=== PATIENT | female | born 1980 | race Caucasian/White ===

== ENCOUNTER 2017-02-11 08:45 | Emergency (ER) | payer MEDICARE ==
[~2017-02-11 08:45] MED LIST: ALBUTEROL0.09 MG/A2 IH; BENTYL10 MG PO; CARAFATE1 G1 PO; CIPRO250 MG PO; CIPRO500 MG PO; CYCLOBENZAPRINE10 MG PO; DEXALONE30 MG PO; DIFLUCAN150 MG PO; DOLOBID500 MG PO; FLAGYL500 MG PO; HYDROCODONE BIT1 T11 PO; KEFLEX500 M1 PO; KEFLEX500 MG PO; KLONOPIN1 MG PO; MACROBID100 M1 PO; MEDROL DOSEPAK4 MG PO; METFORMIN HCL500 MG PO; MOTRIN800 MG PO; NEXIUM40 MG PO; NORCO 7.5-3251 EACH PO; OXYCODONE5 M1 PO; PERCOCET 325 MG1 TA7 PO; PROZAC10 MG PO; PYRIDIUM200 M1 PO; PYRIDIUM200 MG PO; REGLAN5 MG PO; RELION NOV100 UNIT/1 SQ; TRAMADOL HCL50 MG PO; ULTRAM50 MG PO; VICODIN 5/500 505 MG PO; VICTOZA6 MG/ML SC; VITABESE1 CAP PO; XANAX0.5 MG PO; XANAX1 MG PO; XANAX2 MG PO; ZEGERID 40 MG PO; ZOFRAN ODT4 MG SL; Zofran4 MG PO
[2017-02-11] MEDS ORDERED: METFORMIN500 MG PO (08:48)
[2017-02-11 09:23] LABS: BASO % 0.3 % (0.0-1.0); EOS # 0.2 10*3/uL (0.0-0.4); EOS % 2.2 % (1.0-4.0); HEMATOCRIT 45.4 % (37.0-47.0); HEMOGLOBIN 14.3 g/dl (12.0-16.0); IG # 0.1 10*3/uL (0.0-0.1); LYMPH # 3.5 10*3/uL (1.3-4.4); LYMPH % 36.2 % (27.0-41.0); MEAN CELL VOLUME 93.8 fl (81.0-99.0); MEAN CORPUSCULAR HGB 29.5 pg (27.0-31.0); MEAN CORPUSCULAR HGB CONC 31.5 g/dl (33.0-37.0); MONO # 0.5 10*3/uL (0.1-1.0); MONO % 5.4 % (3.0-9.0); NEUT # 5.3 10*3/uL (2.3-7.9); NEUT % 55.4 % (47.0-73.0); PLATELET COUNT AUTOMATED 302 10*3/uL (130-400); RED BLOOD COUNT 4.84 10*6/uL (4.10-5.10); WHITE BLOOD COUNT 9.6 10*3/uL (4.8-10.8)
[2017-02-11 09:27] LABS: BILIRUBIN NEGATIVE (NEGATIVE); BLOOD NEGATIVE (NEGATIVE); CLARITY SL CLOUDY (CLEAR); COLOR YELLOW (YELLOW); GLUCOSE NEGATIVE (NEGATIVE); KETONE NEGATIVE (NEGATIVE); LEUKO ESTERASE NEGATIVE (NEGATIVE); NITRITE NEGATIVE (NEGATIVE); PH 6.5 (5.0-9.0); PROTEIN NEGATIVE (NEGATIVE); SPECIFIC GRAVITY <= 1.005 (1.005-1.030)
[2017-02-11 09:36] LABS: ALBUMIN 3.5 gm/dl (3.1-4.5); ALKALINE PHOSPHATASE 80 U/L (45-117); BILIRUBIN, TOTAL 0.3 mg/dl (0.2-1.0); BUN 10 mg/dl (7-24); CARBON DIOXIDE 27 mmol/L (21-32); CHLORIDE 104 mmol/L (98-107); EST GLOM FILT AFRICAN AMERICAN > 60 ml/min; GLUCOSE 102 mg/dL (65-99); POTASSIUM 3.8 mmol/L (3.5-5.1); SGOT/AST 26 IU/L (3-35); SGPT/ALT 55 U/L (12-78); SODIUM 140 mmol/L (136-145); TOTAL PROTEIN 7.6 gm/dL (6.4-8.2)
[2017-02-11 09:48] LABS: URINE REFLEX COMMENT NO (NO)
[2017-02-11 09:49] LABS: EPITHELIAL CELLS 15-20; WBC 0-2 wbc/hpf (0-5)
== END 2017-02-11 10:07 | disposition home or self-care (01) ==
LOC: ED 08:45
PROVIDERS: Emergency Medicine
DX: G89.29 Other chronic pain (principal); R10.32 Left lower quadrant pain; M54.5 Low back pain; R10.2 Pelvic and perineal pain; K21.9 Gastro-esophageal reflux disease without esophagitis; F17.200 Nicotine dependence, unspecified, uncomplicated; G83.4 Cauda equina syndrome; Z87.442 Personal history of urinary calculi; Z90.49 Acquired absence of other specified parts of digestive tract; Z98.890 Other specified postprocedural states; Z90.711 Acquired absence of uterus with remaining cervical stump; Z79.899 Other long term (current) drug therapy; Z91.041 Radiographic dye allergy status; Z88.2 Allergy status to sulfonamides; Z88.6 Allergy status to analgesic agent

== ENCOUNTER 2017-04-04 21:47 | Emergency (ER) | payer MEDICARE ==
[~2017-04-04] VITALS: Ht 157.5 cm; Wt 170.6 kg
[~2017-04-04 21:47] MED LIST changes: +METFORMIN500 MG PO
[2017-04-04 23:25] LABS: BASO # 0.1 10*3/uL (0.0-0.1); BASO % 0.5 % (0.0-1.0); EOS # 0.2 10*3/uL (0.0-0.4); EOS % 2.1 % (1.0-4.0); HEMATOCRIT 45.2 % (37.0-47.0); HEMOGLOBIN 14.5 g/dl (12.0-16.0); IG # 0.1 10*3/uL (0.0-0.1); LYMPH # 2.7 10*3/uL (1.3-4.4); MEAN CELL VOLUME 93.2 fl (81.0-99.0); MEAN CORPUSCULAR HGB 29.9 pg (27.0-31.0); MEAN CORPUSCULAR HGB CONC 32.1 g/dl (33.0-37.0); MEAN PLATELET VOLUME 10.4 fl (9.6-12.3); MONO # 0.4 10*3/uL (0.1-1.0); MONO % 4.1 % (3.0-9.0); NEUT % 66.8 % (47.0-73.0); PLATELET COUNT AUTOMATED 318 10*3/uL (130-400); RED BLOOD COUNT 4.85 10*6/uL (4.10-5.10); RED CELL DISTRI WIDTH 14.9 % (0-14.5); WHITE BLOOD COUNT 10.5 10*3/uL (4.8-10.8)
[2017-04-04 23:40] LABS: ALBUMIN 3.6 gm/dl (3.1-4.5); ALKALINE PHOSPHATASE 78 U/L (45-117); BILIRUBIN, TOTAL 0.2 mg/dl (0.2-1.0); BUN 7 mg/dl (7-24); CARBON DIOXIDE 29 mmol/L (21-32); CHLORIDE 103 mmol/L (98-107); EST GLOM FILT AFRICAN AMERICAN > 60 ml/min; GLUCOSE 136 mg/dL (65-99); POTASSIUM 4.1 mmol/L (3.5-5.1); SGOT/AST 39 IU/L (3-35); SGPT/ALT 63 U/L (12-78); SODIUM 142 mmol/L (136-145); TOTAL PROTEIN 7.7 gm/dL (6.4-8.2)
[2017-04-04 23:42] LABS: BILIRUBIN NEGATIVE (NEGATIVE); BLOOD 3+ (NEGATIVE); CLARITY CLOUDY (CLEAR); COLOR RED (YELLOW); GLUCOSE NEGATIVE (NEGATIVE); KETONE TRACE (NEGATIVE); LEUKO ESTERASE TRACE (NEGATIVE); NITRITE NEGATIVE (NEGATIVE); PH 7.5 (5.0-9.0); PROTEIN 1+ (NEGATIVE); SPECIFIC GRAVITY 1.015 (1.005-1.030); UROBILINOGEN 0.2 E.U./dl (0.2-1.0)
[2017-04-04 23:54] LABS: BACTERIA 2+; EPITHELIAL CELLS 21-25; RBC TNTC rbc/hpf (0-2); URINE REFLEX COMMENT YES (NO)
[2017-04-05] MEDS ORDERED: ZOFRAN ODT4 MG SL (00:51)
[2017-04-05] MEDS ORDERED: HYDROCODONE BIT1 T11 PO (00:51)
[2017-04-05 01:22] LABS: LA>2 REFLEX 2 HR DRAW NOW
[2017-04-05] MEDS ORDERED: CIPRO500 MG PO (01:42)
== END 2017-04-05 02:06 | disposition home or self-care (01) ==
LOC: ED 21:47
PROVIDERS: Physician Assistant
DX: N23 Unspecified renal colic (principal); N30.01 Acute cystitis with hematuria; F17.200 Nicotine dependence, unspecified, uncomplicated; Z90.49 Acquired absence of other specified parts of digestive tract; Z98.890 Other specified postprocedural states; Z90.711 Acquired absence of uterus with remaining cervical stump; Z79.899 Other long term (current) drug therapy; Z91.041 Radiographic dye allergy status; Z88.2 Allergy status to sulfonamides; Z88.5 Allergy status to narcotic agent; Z88.6 Allergy status to analgesic agent

== ENCOUNTER 2017-04-14 08:36 | Emergency (ER) | payer MEDICARE ==
[2017-04-14 09:09] LABS: BILIRUBIN NEGATIVE (NEGATIVE); BLOOD 3+ (NEGATIVE); CLARITY SL CLOUDY (CLEAR); COLOR YELLOW (YELLOW); GLUCOSE NEGATIVE (NEGATIVE); KETONE NEGATIVE (NEGATIVE); NITRITE NEGATIVE (NEGATIVE); PROTEIN NEGATIVE (NEGATIVE); UROBILINOGEN 0.2 E.U./dl (0.2-1.0)
[2017-04-14 09:18] LABS: BASO # 0.1 10*3/uL (0.0-0.1); BASO % 0.5 % (0.0-1.0); EOS # 0.3 10*3/uL (0.0-0.4); EOS % 3.1 % (1.0-4.0); HEMOGLOBIN 14.5 g/dl (12.0-16.0); IG # 0.1 10*3/uL (0.0-0.1); LYMPH # 3.1 10*3/uL (1.3-4.4); LYMPH % 31.7 % (27.0-41.0); MEAN CELL VOLUME 92.6 fl (81.0-99.0); MEAN CORPUSCULAR HGB 29.8 pg (27.0-31.0); MEAN CORPUSCULAR HGB CONC 32.2 g/dl (33.0-37.0); MEAN PLATELET VOLUME 10.3 fl (9.6-12.3); MONO # 0.5 10*3/uL (0.1-1.0); MONO % 4.7 % (3.0-9.0); NEUT # 5.8 10*3/uL (2.3-7.9); NEUT % 59.4 % (47.0-73.0); PLATELET COUNT AUTOMATED 311 10*3/uL (130-400); RED BLOOD COUNT 4.86 10*6/uL (4.10-5.10); RED CELL DISTRI WIDTH 15.2 % (0-14.5); WHITE BLOOD COUNT 9.7 10*3/uL (4.8-10.8)
[2017-04-14 09:26] LABS: LEUKO ESTERASE 1+ (NEGATIVE)
[2017-04-14 09:27] LABS: BACTERIA 1+; RBC 31-40 rbc/hpf (0-2); URINE REFLEX COMMENT YES (NO)
[2017-04-14 09:28] LABS: URINE AMPHETAMINES < 1000 (1000ng/ml); URINE BARBITURATES < 200 (200ng/ml); URINE COCAINE < 300 (300ng/ml)
[2017-04-14 09:34] LABS: ALBUMIN 3.5 gm/dl (3.1-4.5); ALKALINE PHOSPHATASE 80 U/L (45-117); BILIRUBIN, TOTAL 0.3 mg/dl (0.2-1.0); BUN 9 mg/dl (7-24); CARBON DIOXIDE 28 mmol/L (21-32); CHLORIDE 102 mmol/L (98-107); EST GLOM FILT AFRICAN AMERICAN > 60 ml/min; GLUCOSE 140 mg/dL (65-99); SGOT/AST 24 IU/L (3-35); SGPT/ALT 52 U/L (12-78); SODIUM 140 mmol/L (136-145); TOTAL PROTEIN 7.6 gm/dL (6.4-8.2)
[2017-04-14] MEDS ORDERED: PYRIDIUM200 M1 PO (11:56)
[2017-04-14] MEDS ORDERED: MACROBID100 M1 PO (11:56)
== END 2017-04-14 12:02 | disposition home or self-care (01) ==
LOC: ED 08:36
PROVIDERS: Nurse Practitioner Family
DX: N39.0 Urinary tract infection, site not specified (principal); R03.0 Elevated blood-pressure reading, without diagnosis of hypertension; Z88.6 Allergy status to analgesic agent; Z88.2 Allergy status to sulfonamides; Z91.041 Radiographic dye allergy status; Z88.8 Allergy status to other drugs, medicaments and biological substances; K21.9 Gastro-esophageal reflux disease without esophagitis; F17.200 Nicotine dependence, unspecified, uncomplicated; Z90.49 Acquired absence of other specified parts of digestive tract; Z79.899 Other long term (current) drug therapy

== ENCOUNTER 2017-08-10 03:54 | Emergency (ER) | payer MEDICARE ==
[~2017-08-10] VITALS: Ht 157.4 cm; Wt 176.9 kg
[2017-08-10] MEDS ORDERED: BUSPIRONE HCL15 MG PO (04:01)
[2017-08-10] MEDS ORDERED: Percocet 325 MG1 TAB PO (04:01)
[2017-08-10 04:33] LABS: BASO % 0.3 % (0.0-1.0); EOS # 0.2 10*3/uL (0.0-0.4); EOS % 2.1 % (1.0-4.0); HEMATOCRIT 44.5 % (37.0-47.0); HEMOGLOBIN 14.4 g/dl (12.0-16.0); LYMPH # 2.9 10*3/uL (1.3-4.4); LYMPH % 25.1 % (27.0-41.0); MEAN CELL VOLUME 93.9 fl (81.0-99.0); MEAN CORPUSCULAR HGB 30.4 pg (27.0-31.0); MEAN CORPUSCULAR HGB CONC 32.4 g/dl (33.0-37.0); MEAN PLATELET VOLUME 10.3 fl (9.6-12.3); MONO # 0.7 10*3/uL (0.1-1.0); MONO % 5.8 % (3.0-9.0); NEUT # 7.6 10*3/uL (2.3-7.9); NEUT % 66.1 % (47.0-73.0); PLATELET COUNT AUTOMATED 293 10*3/uL (130-400); RED BLOOD COUNT 4.74 10*6/uL (4.10-5.10); RED CELL DISTRI WIDTH 15.7 % (0-14.5); WHITE BLOOD COUNT 11.5 10*3/uL (4.8-10.8)
[2017-08-10 04:43] LABS: ACT PARTIAL THROMBO TIME 27.9 SECONDS (20.8-31.5)
[2017-08-10 04:49] LABS: ALBUMIN 3.4 gm/dl (3.1-4.5); ALKALINE PHOSPHATASE 83 U/L (45-117); BUN 12 mg/dl (7-24); CHLORIDE 100 mmol/L (98-107); CREATININE 0.78 mg/dL (0.55-1.02); POTASSIUM 3.7 mmol/L (3.5-5.1); SGOT/AST 37 IU/L (3-35); SGPT/ALT 58 U/L (12-78); SODIUM 136 mmol/L (136-145); TOTAL PROTEIN 7.8 gm/dL (6.4-8.2)
[2017-08-10 04:53] LABS: TROPONIN I < 0.015 ng/ml (<0.045)
== END 2017-08-10 06:38 | disposition short-term general hospital (02) ==
LOC: ED 03:54
PROVIDERS: Student in an Organized Health Care Education/Training Program
DX: G83.4 Cauda equina syndrome (principal); R20.0 Anesthesia of skin; F17.200 Nicotine dependence, unspecified, uncomplicated; K21.9 Gastro-esophageal reflux disease without esophagitis; G89.29 Other chronic pain; M54.5 Low back pain; R10.2 Pelvic and perineal pain; Z90.49 Acquired absence of other specified parts of digestive tract; Z90.711 Acquired absence of uterus with remaining cervical stump; Z98.890 Other specified postprocedural states; Z87.442 Personal history of urinary calculi; Z79.899 Other long term (current) drug therapy; Z91.041 Radiographic dye allergy status; Z88.2 Allergy status to sulfonamides; Z88.5 Allergy status to narcotic agent; Z88.6 Allergy status to analgesic agent; W01.0XXA Fall on same level from slipping, tripping and stumbling without subsequent striking against object, initial encounter; Y93.89 Activity, other specified; Y92.091 Bathroom in other non-institutional residence as the place of occurrence of the external cause; Y99.9 Unspecified external cause status

== ENCOUNTER 2017-09-24 01:39 | Inpatient (IN) | payer MEDICARE ==
[2017-09-24] VITALS (8 sets, daily range): BP systolic 102–155; BP diastolic 44–84
[~2017-09-24] VITALS: Ht 157.4 cm; Wt 185.2 kg
[~2017-09-24 01:39] MED LIST changes: +BUSPIRONE HCL15 MG PO; +Percocet 325 MG1 TAB PO
[2017-09-24 02:13] LABS: BASO % 0.3 % (0.0-1.0); EOS # 0.3 10*3/uL (0.0-0.4); EOS % 2.3 % (1.0-4.0); HEMATOCRIT 45.5 % (37.0-47.0); HEMOGLOBIN 14.9 g/dl (12.0-16.0); LYMPH # 4.1 10*3/uL (1.3-4.4); LYMPH % 34.4 % (27.0-41.0); MEAN CELL VOLUME 93.2 fl (81.0-99.0); MEAN CORPUSCULAR HGB 30.5 pg (27.0-31.0); MEAN CORPUSCULAR HGB CONC 32.7 g/dl (33.0-37.0); MEAN PLATELET VOLUME 10.5 fl (9.6-12.3); MONO # 0.6 10*3/uL (0.1-1.0); MONO % 5.2 % (3.0-9.0); NEUT # 6.8 10*3/uL (2.3-7.9); NEUT % 57.3 % (47.0-73.0); PLATELET COUNT AUTOMATED 318 10*3/uL (130-400); RED BLOOD COUNT 4.88 10*6/uL (4.10-5.10); RED CELL DISTRI WIDTH 15.1 % (0-14.5); WHITE BLOOD COUNT 11.8 10*3/uL (4.8-10.8)
[2017-09-24 02:36] LABS: ALBUMIN 3.5 gm/dl (3.1-4.5); ALKALINE PHOSPHATASE 88 U/L (45-117); BUN 13 mg/dl (7-24); CHLORIDE 102 mmol/L (98-107); CREATININE 0.82 mg/dL (0.55-1.02); LIPASE 296 U/L (73-393); POTASSIUM 4.1 mmol/L (3.5-5.1); SGOT/AST 25 IU/L (3-35); SGPT/ALT 49 U/L (12-78); SODIUM 140 mmol/L (136-145); TOTAL PROTEIN 7.5 gm/dL (6.4-8.2)
[2017-09-24 03:10] LABS: BILIRUBIN NEGATIVE (NEGATIVE); BLOOD 3+ (NEGATIVE); CLARITY SL CLOUDY (CLEAR); COLOR YELLOW (YELLOW); GLUCOSE NEGATIVE (NEGATIVE); KETONE NEGATIVE (NEGATIVE); LEUKO ESTERASE NEGATIVE (NEGATIVE); NITRITE NEGATIVE (NEGATIVE); PH 6.5 (5.0-9.0); UROBILINOGEN 0.2 E.U./dl (0.2-1.0)
--- NOTE | 2017-09-24 03:18 | NUR ---
PT C/O OF ABDOMINAL PAIN WITH NO RELIEF FROM MEDICATION PAIN RATED 7/10 , NOTIFIED.
[2017-09-24 03:19] LABS: EPITHELIAL CELLS 45-50; RBC TNTC rbc/hpf (0-2); WBC 0-2 wbc/hpf (0-5)
--- NOTE | 2017-09-24 03:57 | NUR ---
PATIENT RESTING IN BED WITH SON AND AT BEDSIDE, PT UNABLE TO PROVIDE URINE SAMPLE, GIVEN MINI SOLIMAN, PT HAS NO REQUESTS AT THIS TIME, BED IN LOWEST POSITION BED RAILS UP X 2 CALL ORTA IN REACH
--- NOTE | 2017-09-24 04:15 | NUR ---
A 37, admitted to , under the services of BREANA Pacheco DO with a diagnosis of ABDOMINAL PAIN. Chief complaint is ABDOMINAL PAIN. Patient arrived via bed from ER. Monitor applied. Initial assessment completed. Vital signs taken and recorded. BREANA PACHECO DO notified of admission to the unit. Orders received. See assessment for past medical history, medications and allergies. Patient and/or family oriented to unit. [facility] visitation policy reviewed. Clothing/patient valuable form completed. VILMA BERMAN
[2017-09-24] MEDS ORDERED: CELEXA40 MG PO (04:28)
[2017-09-24] MEDS ORDERED: FLONASE ALLERG9.9 ML NAS (04:29)
[2017-09-24] MEDS ORDERED: PROTONIX40 MG PO (04:29)
[2017-09-24] MEDS ORDERED: NICOTROL10 MG INH (04:33)
--- NOTE | 2017-09-24 04:34 | NUR ---
MED REC UPDATED VIA LIST FROM PATIENT.
--- NOTE | 2017-09-24 06:29 | NUR ---
MEDICATED WITH PRN DILAUDID AND ZOFRAN ORDERED FOR C/O LOWER ABDOMINAL AND LOW BACK PAIN AND NAUSEA.
--- NOTE | 2017-09-24 08:22 | NUR ---
Patient requested information on HPOA and living will. Packet provided.
--- NOTE | 2017-09-24 09:00 | NUR ---
Yarn Spinner in to talk to patient. Patient states lives at home with family. There are few steps in the home. Physician: stephanie anaya [facility] health services: none Patient's level of ADLs: INDEPENDENT Patient has working utilities: all working DME: none Follow-up physician's appointment after d/c: will be made by hospitalist nurse director upon discharge Does patient want to access PORTAL?: no Discharge plan discussed with patient, patient lives at home with family, is independent in adls and ambulation, patient will be going back home upon discharge and denies any home needs. HAYDEN GRAFF
--- NOTE | 2017-09-24 19:33 | NUR ---
24 HR chart check completed.
--- NOTE | 2017-09-24 21:16 | NUR ---
C/O 10/10 ABDOMINAL PAIN. BOTH LOWER QUADRANTS. MEDICATED WITH DILAUDID ORDERED AND PER PATIENT REQUEST.
--- NOTE | 2017-09-24 22:16 | NUR ---
PATIENT SLEEPING IN CHAIR. NO SIGNS OF PAIN. DILAUDID EFFECTIVE.
--- NOTE | 2017-09-24 23:22 | NUR ---
PATIENT C/O ABDOMINAL PAIN. RLQ OF ABDOMEN. ALSO C/O NAUSEA WITHOUT VOMITING. MEDICATED WITH PRN DILAUDID ORDERED AND PER PATIENT REQUEST.
[2017-09-25] VITALS: BP 119/66
--- NOTE | 2017-09-25 | NUR ---
PATIENT IS ASLEEP IN CHAIR. NO SIGNS OF PAIN OR NAUSEA. ZOFRAN AND DILAUDID EFFECTIVE.
--- NOTE | 2017-09-25 01:39 | NUR ---
PATIENT C/O 08/28 RLQ ABDOMINAL PAIN. MEDICATED WITH DILAUDID PER PATIENT REQUEST.
--- NOTE | 2017-09-25 01:54 | NUR ---
PATIENT ASLEEP. NO SIGNS OF PAIN. DILAUDID EFFECTIVE.
--- NOTE | 2017-09-25 04:50 | NUR ---
PATIENT C/O 610 ABDOMINAL PAIN. MEDICATED WITH PRN DILAUDID ORDERED AND PER PATIENT REQUEST.
--- NOTE | 2017-09-25 05:50 | NUR ---
PATIENT ASLEEP IN CHAIR. NO SIGNS OF PAIN. DILAUDID EFFECTIVE.
[2017-09-25 06:39] LABS: BASO % 0.3 % (0.0-1.0); EOS # 0.1 10*3/uL (0.0-0.4); EOS % 1.5 % (1.0-4.0); HEMATOCRIT 40.5 % (37.0-47.0); LYMPH # 1.8 10*3/uL (1.3-4.4); LYMPH % 19.3 % (27.0-41.0); MEAN CORPUSCULAR HGB 30.1 pg (27.0-31.0); MEAN CORPUSCULAR HGB CONC 31.1 g/dl (33.0-37.0); MEAN PLATELET VOLUME 10.2 fl (9.6-12.3); MONO # 0.5 10*3/uL (0.1-1.0); MONO % 4.8 % (3.0-9.0); NEUT # 6.9 10*3/uL (2.3-7.9); NEUT % 73.5 % (47.0-73.0); PLATELET COUNT AUTOMATED 257 10*3/uL (130-400); RED BLOOD COUNT 4.19 10*6/uL (4.10-5.10); RED CELL DISTRI WIDTH 15.3 % (0-14.5); WHITE BLOOD COUNT 9.4 10*3/uL (4.8-10.8)
[2017-09-25 06:42] LABS: HEMOGLOBIN 12.6 g/dl (12.0-16.0); MEAN CELL VOLUME 96.7 fl (81.0-99.0)
[2017-09-25 07:03] LABS: ACT PARTIAL THROMBO TIME 29.9 SECONDS (20.8-31.5)
[2017-09-25 07:07] LABS: BUN 12 mg/dl (7-24); CHLORIDE 100 mmol/L (98-107); CHOLESTEROL 214 mg/dL (<200); CREATININE 0.78 mg/dL (0.55-1.02); HDL CHOLESTEROL 46 mg/dl (40-60); LDL CHOLESTEROL 125 mg/dL (9-159); POTASSIUM 3.9 mmol/L (3.5-5.1); SODIUM 134 mmol/L (136-145); TRIGLYCERIDES 217 mg/dl (<150); VLDL CHOLESTEROL 43 mg/dL (6-40)
[2017-09-25 07:28] LABS: VITAMIN D, 25-HYDROXY 29.1 ng/mL (30-100)
--- NOTE | 2017-09-25 07:45 | NUR ---
PT AWAKE. ASSESSMENT COMPLETE. ADMINISTERED IV DILAUDID PER PT REQUEST FOR C/O LOWER ABDOMINAL PAIN RATED 8/10. WILL MONITOR FOR EFFECTIVENESS.
[2017-09-25 08:00] VITALS: BP 115/60
--- NOTE | 2017-09-25 08:40 | NUR ---
PT SLEEPING. RESPS REG/EASY WITH NO DISTRESS NOTED AT THIS TIME.
--- NOTE | 2017-09-25 09:00 | NUR ---
case management visits with patient, patient denies any home needs
--- NOTE | 2017-09-25 10:05 | NUR ---
CALLED TO PTS ROOM FOR C/O LOWER ABDOMINAL PAIN RADIATING TO RIGHT SIDE. PT RATES PAIN AT A 6/10. ADMISITERED IV DILAUDID. WILL MONITOR FOR EFFECTIVENESS.
--- NOTE | 2017-09-25 10:45 | NUR ---
PT STATES MEDICATION EFFECTIVE IN REDUCING PAIN TO 3/10. BED LOW. CALL ORTA IN REACH.
[2017-09-25 12:00] VITALS: BP 127/60
--- NOTE | 2017-09-25 12:00 | NUR ---
ADMINISTERED PO TYLENOL AND XANAX PER PT REQUEST FOR LOWER ABD PAIN RATED AT 7/10 AND ANXIETY. WILL MONITOR FOR EFFECTIVENESS.
--- NOTE | 2017-09-25 12:55 | NUR ---
Patient resting quietly with no c/o discomfort. Respirations easy and regular. Vital signs stable. No overt distress. HAILEY ANGELES
--- NOTE | 2017-09-25 14:10 | NUR ---
ADMINISTERED IV DILAUDID PER PT REQUEST FOR LOWER ABD PAIN RATED 7/10. WILL MONITOR FOR EFFECTIVENESS.
--- NOTE | 2017-09-25 15:00 | NUR ---
Patient resting quietly with no c/o discomfort. Respirations easy and regular. Vital signs stable. No overt distress. HAILEY ANGELES
[2017-09-25 16:00] VITALS: BP 121/59
[2017-09-25 20:00] VITALS: BP 119/58
--- NOTE | 2017-09-25 20:00 | NUR ---
PT SITTING UP IN CHAIR AT THIS TIME, HS ASSESSMENT COMPLETE, VITALS WNL. IV SITE PATENT, DRESSING DRY AND IN TACT. IV FLUID RUNNING PER PHYSICIAN ORDER. PT ALERT AND ORIENTED, PLEASANT AND COOPERATIVE. ALL NEEDS MET AT THIS TIME. CALL LIGHT IN REACH.
--- NOTE | 2017-09-25 20:30 | NUR ---
PT C/O ABDOMINAL PAIN. TYLENOL 650 MG ADMINSITERED PO. TAKEN WITH EASE. WILL MONITOR FOR EFFECTIVENESS. CALL LIGHT IN REACH.
--- NOTE | 2017-09-25 21:30 | NUR ---
TYLENOL EFFECTIVE PER PT.
--- NOTE | 2017-09-25 22:30 | NUR ---
PT ADMINISTERED DILAUDID VIA IV FOR C/O ABDOMINAL PAIN. WILL MONTIOR FOR EFFECTIVENESS. PT SITTING UP IN CHAIR, ROOM FREE OF CLUTTER, SAFETY MEASURES IN PLACE. CALL LIGHT IN REACH.
--- NOTE | 2017-09-25 22:38 | NUR ---
PT GIVEN RESTORIL FOR C/O INSOMNIA. WILL MONITOR FOR EFFECTIVENESS. CALL LIGHT IN REACH.
--- NOTE | 2017-09-25 23:30 | NUR ---
DILAUDID EFFECTIVE. PT RESTING IN BED, CALL LIGHT IN REACH.
--- NOTE | 2017-09-25 23:38 | NUR ---
RESTORIL EFFECTIVE. PT RESTING PEACEFULLY IN BED. CALL LIGHT IN REACH.
[2017-09-26] VITALS: BP 108/65
--- NOTE | 2017-09-26 02:34 | NUR ---
PT C/O ABDOMINAL PAIN. DILAUDID ADMINISTERED VIA IV. WILL MONITOR FOR EFFECTIVENESS. SITTING UP IN BED AT THIS TIME, CALL LIGHT IN REACH.
--- NOTE | 2017-09-26 03:34 | NUR ---
DILAUDID EFFECTIVE. PT SITTING UP IN CHAIR AT THIS TIME. ALERT, ORIENTED AND PLEASANT. NO S/S OF DISTRESS AT THIS TIME. RESPIRATIONS EASY AND UNLABORED. IV FLUIDS RUNNING PER ORDER. IV SITE PATENT, DRESSING DRY AND IN TACT. CALL LIGHT IN REACH.
--- NOTE | 2017-09-26 04:58 | NUR ---
24 HR chart check completed.
--- NOTE | 2017-09-26 06:30 | NUR ---
AM MEDICAITONS TAKEN WITH EASE. PT DENIES PAIN OR DISCOMFORT AT THIS TIME. RESPIRATIONS EASY AND UNLABORED. NO NEW ABNORMALITES NOTED. CURRENTLY SITTING UP IN CHAIR. CALL LIGHT IN REACH.
[2017-09-26 08:00] VITALS: BP 118/58
--- NOTE | 2017-09-26 08:34 | NUR ---
PT SITTING UP IN CHAIR. NO DISTRESS NOTED. PT C/O ABD PAIN. WILL MONITOR
[2017-09-26 08:57] LABS: BASO % 0.4 % (0.0-1.0); EOS # 0.2 10*3/uL (0.0-0.4); EOS % 2.4 % (1.0-4.0); HEMATOCRIT 36.8 % (37.0-47.0); HEMOGLOBIN 11.8 g/dl (12.0-16.0); LYMPH # 2.1 10*3/uL (1.3-4.4); LYMPH % 28.4 % (27.0-41.0); MEAN CELL VOLUME 95.8 fl (81.0-99.0); MEAN CORPUSCULAR HGB 30.7 pg (27.0-31.0); MEAN CORPUSCULAR HGB CONC 32.1 g/dl (33.0-37.0); MEAN PLATELET VOLUME 10.1 fl (9.6-12.3); MONO # 0.4 10*3/uL (0.1-1.0); MONO % 5.9 % (3.0-9.0); NEUT # 4.6 10*3/uL (2.3-7.9); NEUT % 62.5 % (47.0-73.0); PLATELET COUNT AUTOMATED 214 10*3/uL (130-400); RED BLOOD COUNT 3.84 10*6/uL (4.10-5.10); RED CELL DISTRI WIDTH 15.1 % (0-14.5); WHITE BLOOD COUNT 7.4 10*3/uL (4.8-10.8)
--- NOTE | 2017-09-26 09:00 | NUR ---
case management visits with patient, patient denies any home needs
[2017-09-26 09:31] LABS: ALBUMIN 3.1 gm/dl (3.1-4.5); ALKALINE PHOSPHATASE 65 U/L (45-117); BUN 8 mg/dl (7-24); CHLORIDE 104 mmol/L (98-107); CREATININE 0.63 mg/dL (0.55-1.02); POTASSIUM 3.6 mmol/L (3.5-5.1); SGOT/AST 24 IU/L (3-35); SGPT/ALT 47 U/L (12-78); SODIUM 138 mmol/L (136-145); TOTAL PROTEIN 6.6 gm/dL (6.4-8.2)
[2017-09-26] MEDS ORDERED: CRESTOR10 M1 PO (09:48)
--- NOTE | 2017-09-26 11:12 | NUR ---
Discharge instructions reviewed with patient/family. Patient receptive and verbalizes understanding. Follow-up care arranged. Written instructions given to patient/family. YOHANA HOGAN
== END 2017-09-26 11:12 | disposition home or self-care (01) | DRG 392 ==
LOC: ED 01:39 → EDHOLD 03:31 → 5E 03:31
PROVIDERS: Internal Medicine; Registered Nurse; Student in an Organized Health Care Education/Training Program; ADMIT Internal Medicine
DX: R10.31 Right lower quadrant pain (principal); E87.2 Acidosis; R65.10 Systemic inflammatory response syndrome (SIRS) of non-infectious origin without acute organ dysfunction; E66.01 Morbid (severe) obesity due to excess calories; Z68.45 Body mass index [BMI] 70 or greater, adult; M54.5 Low back pain; G89.29 Other chronic pain; K21.9 Gastro-esophageal reflux disease without esophagitis; E78.5 Hyperlipidemia, unspecified; R31.9 Hematuria, unspecified; Z87.440 Personal history of urinary (tract) infections; Z82.49 Family history of ischemic heart disease and other diseases of the circulatory system; Z72.0 Tobacco use; Z91.041 Radiographic dye allergy status; Z88.2 Allergy status to sulfonamides; Z88.8 Allergy status to other drugs, medicaments and biological substances; Z91.048 Other nonmedicinal substance allergy status; Z79.899 Other long term (current) drug therapy; Z87.442 Personal history of urinary calculi

== ENCOUNTER 2017-10-29 04:26 | Emergency (ER) | payer MEDICARE ==
[~2017-10-29] VITALS: Ht 157.4 cm; Wt 181.9 kg
[~2017-10-29 04:26] MED LIST changes: +CELEXA40 MG PO; +CRESTOR10 M1 PO; +FLONASE ALLERG9.9 ML NAS; +NICOTROL10 MG INH; +PROTONIX40 MG PO
[2017-10-29 05:22] LABS: BILIRUBIN NEGATIVE (NEGATIVE); BLOOD 3+ (NEGATIVE); CLARITY SL CLOUDY (CLEAR); COLOR RED (YELLOW); GLUCOSE NEGATIVE (NEGATIVE); KETONE NEGATIVE (NEGATIVE); LEUKO ESTERASE NEGATIVE (NEGATIVE); NITRITE NEGATIVE (NEGATIVE); PH 7.5 (5.0-9.0); UROBILINOGEN 0.2 E.U./dl (0.2-1.0)
[2017-10-29 05:33] LABS: RBC TNTC rbc/hpf (0-2)
[2017-10-29 05:39] LABS: BASO % 0.3 % (0.0-1.0); EOS # 0.2 10*3/uL (0.0-0.4); EOS % 2.3 % (1.0-4.0); HEMOGLOBIN 13.6 g/dl (12.0-16.0); LYMPH # 2.4 10*3/uL (1.3-4.4); LYMPH % 26.2 % (27.0-41.0); MEAN CELL VOLUME 95.3 fl (81.0-99.0); MEAN CORPUSCULAR HGB 30.2 pg (27.0-31.0); MEAN CORPUSCULAR HGB CONC 31.6 g/dl (33.0-37.0); MEAN PLATELET VOLUME 10.4 fl (9.6-12.3); MONO # 0.5 10*3/uL (0.1-1.0); MONO % 4.9 % (3.0-9.0); NEUT # 6.1 10*3/uL (2.3-7.9); NEUT % 65.8 % (47.0-73.0); PLATELET COUNT AUTOMATED 316 10*3/uL (130-400); RED BLOOD COUNT 4.51 10*6/uL (4.10-5.10); RED CELL DISTRI WIDTH 15.2 % (0-14.5); WHITE BLOOD COUNT 9.2 10*3/uL (4.8-10.8)
[2017-10-29 05:50] LABS: BUN 7 mg/dl (7-24); CHLORIDE 102 mmol/L (98-107); CREATININE 0.65 mg/dL (0.55-1.02); SODIUM 139 mmol/L (136-145)
[2017-10-29 06:10] LABS: ALBUMIN 3.4 gm/dl (3.1-4.5); ALKALINE PHOSPHATASE 76 U/L (45-117); CHLORIDE 102 mmol/L (98-107); LIPASE 249 U/L (73-393); SGOT/AST 36 IU/L (3-35); SGPT/ALT 57 U/L (12-78); TOTAL PROTEIN 7.7 gm/dL (6.4-8.2)
[2017-10-29 06:18] LABS: BUN 7 mg/dl (7-24); CREATININE 0.65 mg/dL (0.55-1.02); SODIUM 139 mmol/L (136-145)
== END 2017-10-29 09:27 | disposition short-term general hospital (02) ==
LOC: ED 04:26
PROVIDERS: Emergency Medicine Emergency Medical Services
DX: R31.9 Hematuria, unspecified (principal); R10.9 Unspecified abdominal pain; R50.9 Fever, unspecified

== ENCOUNTER 2017-11-22 00:31 | Emergency (ER) | payer MEDICARE ==
[~2017-11-22] VITALS: Ht 157.4 cm; Wt 181.9 kg
== END 2017-11-22 04:59 | disposition home or self-care (01) ==
LOC: ED 00:31
DX: S30.0XXA Contusion of lower back and pelvis, initial encounter (principal); F17.200 Nicotine dependence, unspecified, uncomplicated; G89.29 Other chronic pain; K21.9 Gastro-esophageal reflux disease without esophagitis; E78.5 Hyperlipidemia, unspecified; Z79.899 Other long term (current) drug therapy; Z90.49 Acquired absence of other specified parts of digestive tract; Z98.890 Other specified postprocedural states; Z90.711 Acquired absence of uterus with remaining cervical stump; Z87.442 Personal history of urinary calculi; Z91.041 Radiographic dye allergy status; Z88.2 Allergy status to sulfonamides; Z88.6 Allergy status to analgesic agent; W19.XXXA Unspecified fall, initial encounter; Y93.89 Activity, other specified; Y92.098 Other place in other non-institutional residence as the place of occurrence of the external cause; Y99.9 Unspecified external cause status

== ENCOUNTER 2018-01-02 19:24 | Emergency (ER) | payer MEDICARE ==
[~2018-01-02] VITALS: Ht 157.4 cm; Wt 177.8 kg
[2018-01-02 19:56] LABS: BILIRUBIN NEGATIVE (NEGATIVE); BLOOD NEGATIVE (NEGATIVE); CLARITY SL CLOUDY (CLEAR); COLOR YELLOW (YELLOW); GLUCOSE NEGATIVE (NEGATIVE); KETONE NEGATIVE (NEGATIVE); LEUKO ESTERASE NEGATIVE (NEGATIVE); NITRITE NEGATIVE (NEGATIVE); PH 6.5 (5.0-9.0); SPECIFIC GRAVITY 1.015 (1.005-1.030); UROBILINOGEN 0.2 E.U./dl (0.2-1.0)
[2018-01-02 20:07] LABS: BACTERIA 2+
[2018-01-02 20:15] LABS: BASO % 0.4 % (0.0-1.0); EOS # 0.3 10*3/uL (0.0-0.4); EOS % 2.7 % (1.0-4.0); LYMPH % 27.7 % (27.0-41.0); MEAN CELL VOLUME 92.6 fl (81.0-99.0); MEAN CORPUSCULAR HGB 29.3 pg (27.0-31.0); MEAN CORPUSCULAR HGB CONC 31.7 g/dl (33.0-37.0); MEAN PLATELET VOLUME 10.6 fl (9.6-12.3); MONO # 0.5 10*3/uL (0.1-1.0); MONO % 4.5 % (3.0-9.0); NEUT # 6.9 10*3/uL (2.3-7.9); NEUT % 64.2 % (47.0-73.0); PLATELET COUNT AUTOMATED 321 10*3/uL (130-400); RED BLOOD COUNT 4.43 10*6/uL (4.10-5.10); RED CELL DISTRI WIDTH 15.5 % (0-14.5); WHITE BLOOD COUNT 10.8 10*3/uL (4.8-10.8)
[2018-01-02 20:59] LABS: ALBUMIN 3.2 gm/dl (3.1-4.5); ALKALINE PHOSPHATASE 76 U/L (45-117); BUN 13 mg/dl (7-24); CHLORIDE 101 mmol/L (98-107); CREATININE 0.66 mg/dL (0.55-1.02); LIPASE 229 U/L (73-393); POTASSIUM 3.8 mmol/L (3.5-5.1); SGOT/AST 31 IU/L (3-35); SGPT/ALT 64 U/L (12-78); SODIUM 135 mmol/L (136-145); TOTAL PROTEIN 7.3 gm/dL (6.4-8.2)
== END 2018-01-02 21:12 | disposition home or self-care (01) ==
LOC: ED 19:24
PROVIDERS: Physician Assistant
DX: R10.84 Generalized abdominal pain (principal); F17.200 Nicotine dependence, unspecified, uncomplicated; Z91.041 Radiographic dye allergy status; Z88.6 Allergy status to analgesic agent; Z88.8 Allergy status to other drugs, medicaments and biological substances; Z79.899 Other long term (current) drug therapy

== ENCOUNTER 2018-02-25 07:07 | Emergency (ER) | payer MEDICARE ==
[~2018-02-25] VITALS: Ht 157.4 cm; Wt 177.8 kg
[2018-02-25 07:50] LABS: BASO # 0.1 10*3/uL (0.0-0.1); BASO % 0.5 % (0.0-1.0); EOS # 0.2 10*3/uL (0.0-0.4); EOS % 2.2 % (1.0-4.0); HEMATOCRIT 43.7 % (37.0-47.0); HEMOGLOBIN 13.6 g/dl (12.0-16.0); LYMPH # 2.6 10*3/uL (1.3-4.4); MEAN CELL VOLUME 93.4 fl (81.0-99.0); MEAN CORPUSCULAR HGB 29.1 pg (27.0-31.0); MEAN CORPUSCULAR HGB CONC 31.1 g/dl (33.0-37.0); MEAN PLATELET VOLUME 10.1 fl (9.6-12.3); MONO # 0.5 10*3/uL (0.1-1.0); MONO % 4.8 % (3.0-9.0); NEUT % 66.9 % (47.0-73.0); PLATELET COUNT AUTOMATED 304 10*3/uL (130-400); RED BLOOD COUNT 4.68 10*6/uL (4.10-5.10); RED CELL DISTRI WIDTH 16.1 % (0-14.5); WHITE BLOOD COUNT 10.5 10*3/uL (4.8-10.8)
[2018-02-25 08:06] LABS: ACT PARTIAL THROMBO TIME 26.2 SECONDS (20.8-31.5)
[2018-02-25 08:07] LABS: ALBUMIN 3.3 gm/dl (3.1-4.5); ALKALINE PHOSPHATASE 84 U/L (45-117); BUN 11 mg/dl (7-24); CHLORIDE 101 mmol/L (98-107); POTASSIUM 3.8 mmol/L (3.5-5.1); SGOT/AST 30 IU/L (3-35); SGPT/ALT 66 U/L (12-78); SODIUM 139 mmol/L (136-145); TOTAL PROTEIN 7.5 gm/dL (6.4-8.2)
[2018-02-25] MEDS ORDERED: MEDROL DOSEPAK4 MG PO (09:37)
[2018-02-25] MEDS ORDERED: CYCLOBENZAPRINE10 MG PO (09:37)
== END 2018-02-25 09:44 | disposition home or self-care (01) ==
LOC: ED 07:07
PROVIDERS: Emergency Medicine
DX: G89.29 Other chronic pain (principal); M54.5 Low back pain; E66.01 Morbid (severe) obesity due to excess calories; K21.9 Gastro-esophageal reflux disease without esophagitis; E78.5 Hyperlipidemia, unspecified; F17.200 Nicotine dependence, unspecified, uncomplicated; Z90.49 Acquired absence of other specified parts of digestive tract; Z98.890 Other specified postprocedural states; Z90.711 Acquired absence of uterus with remaining cervical stump; Z79.899 Other long term (current) drug therapy; Z91.041 Radiographic dye allergy status; Z88.2 Allergy status to sulfonamides; Z88.6 Allergy status to analgesic agent; Z68.45 Body mass index [BMI] 70 or greater, adult

== ENCOUNTER 2018-06-20 01:30 | Emergency (ER) | payer MEDICARE ==
[~2018-06-20] VITALS: Ht 157.4 cm; Wt 177.8 kg
[2018-06-20 02:06] LABS: BASO # 0.1 10*3/uL (0.0-0.1); BASO % 0.5 % (0.0-1.0); EOS # 0.3 10*3/uL (0.0-0.4); EOS % 2.9 % (1.0-4.0); HEMATOCRIT 39.9 % (37.0-47.0); HEMOGLOBIN 12.5 g/dl (12.0-16.0); LYMPH # 2.3 10*3/uL (1.3-4.4); LYMPH % 23.4 % (27.0-41.0); MEAN CELL VOLUME 92.1 fl (81.0-99.0); MEAN CORPUSCULAR HGB 28.9 pg (27.0-31.0); MEAN CORPUSCULAR HGB CONC 31.3 g/dl (33.0-37.0); MEAN PLATELET VOLUME 10.2 fl (9.6-12.3); MONO # 0.4 10*3/uL (0.1-1.0); MONO % 4.2 % (3.0-9.0); NEUT # 6.7 10*3/uL (2.3-7.9); NEUT % 68.3 % (47.0-73.0); PLATELET COUNT AUTOMATED 274 10*3/uL (130-400); RED BLOOD COUNT 4.33 10*6/uL (4.10-5.10); RED CELL DISTRI WIDTH 15.9 % (0-14.5); WHITE BLOOD COUNT 9.9 10*3/uL (4.8-10.8)
[2018-06-20 02:23] LABS: ALBUMIN 3.1 gm/dl (3.1-4.5); ALKALINE PHOSPHATASE 79 U/L (45-117); BUN 12 mg/dl (7-24); CHLORIDE 101 mmol/L (98-107); CREATININE 0.74 mg/dL (0.55-1.02); LIPASE 287 U/L (73-393); SGOT/AST 31 IU/L (3-35); SGPT/ALT 66 U/L (12-78); SODIUM 138 mmol/L (136-145)
[2018-06-20 02:26] LABS: BETA-HCG, QUANT < 1.0 mIU/mL (1-3)
[2018-06-20 03:35] LABS: BILIRUBIN NEGATIVE (NEGATIVE); BLOOD NEGATIVE (NEGATIVE); CLARITY CLEAR (CLEAR); COLOR YELLOW (YELLOW); GLUCOSE 1+ (NEGATIVE); KETONE NEGATIVE (NEGATIVE); LEUKO ESTERASE NEGATIVE (NEGATIVE); NITRITE NEGATIVE (NEGATIVE); UROBILINOGEN 0.2 E.U./dl (0.2-1.0)
[2018-06-20 03:50] LABS: RBC 0-2 rbc/hpf (0-2); WBC 0-2 wbc/hpf (0-5)
== END 2018-06-20 04:45 | disposition home or self-care (01) ==
LOC: ED 01:30
PROVIDERS: Emergency Medicine Emergency Medical Services
DX: R10.32 Left lower quadrant pain (principal); R11.10 Vomiting, unspecified; R50.9 Fever, unspecified; K92.1 Melena; K21.9 Gastro-esophageal reflux disease without esophagitis; E78.5 Hyperlipidemia, unspecified; E66.01 Morbid (severe) obesity due to excess calories; F17.200 Nicotine dependence, unspecified, uncomplicated; Z68.45 Body mass index [BMI] 70 or greater, adult; Z91.041 Radiographic dye allergy status; Z88.2 Allergy status to sulfonamides; Z88.6 Allergy status to analgesic agent; Z79.899 Other long term (current) drug therapy

== ENCOUNTER 2019-02-15 18:56 | Inpatient (IN) | payer MEDICARE ==
[~2019-02-15] VITALS: Ht 157.5 cm; Wt 176.6 kg
[2019-02-15 19:40] LABS: BILIRUBIN NEGATIVE (NEGATIVE); BLOOD NEGATIVE (NEGATIVE); CLARITY CLEAR (CLEAR); COLOR YELLOW (YELLOW); GLUCOSE 3+ (NEGATIVE); KETONE NEGATIVE (NEGATIVE); LEUKO ESTERASE NEGATIVE (NEGATIVE); NITRITE NEGATIVE (NEGATIVE); SPECIFIC GRAVITY <= 1.005 (1.005-1.030); UROBILINOGEN 0.2 E.U./dl (0.2-1.0)
[2019-02-15 19:49] LABS: BACTERIA TRACE
[2019-02-15 20:25] VITALS: BP 110/54
[2019-02-15 20:34] LABS: BASO % 0.3 % (0.0-1.0); EOS # 0.2 10*3/uL (0.0-0.4); HEMATOCRIT 42.3 % (37.0-47.0); HEMOGLOBIN 12.8 g/dl (12.0-16.0); LYMPH # 1.9 10*3/uL (1.3-4.4); LYMPH % 20.4 % (27.0-41.0); MEAN CELL VOLUME 88.3 fl (81.0-99.0); MEAN CORPUSCULAR HGB 26.7 pg (27.0-31.0); MEAN CORPUSCULAR HGB CONC 30.3 g/dl (33.0-37.0); MEAN PLATELET VOLUME 10.8 fl (9.6-12.3); MONO # 0.4 10*3/uL (0.1-1.0); MONO % 4.7 % (3.0-9.0); NEUT # 6.6 10*3/uL (2.3-7.9); NEUT % 71.9 % (47.0-73.0); PLATELET COUNT AUTOMATED 297 10*3/uL (130-400); RED BLOOD COUNT 4.79 10*6/uL (4.10-5.10); WHITE BLOOD COUNT 9.2 10*3/uL (4.8-10.8)
--- NOTE | 2019-02-15 20:37 | NUR ---
PT WITH MILD PAIN RELIEF WITH MEDS,KIN MARTINES PA-C NOTIFIED.
[2019-02-15 20:55] LABS: ALKALINE PHOSPHATASE 97 U/L (45-117); BUN 7 mg/dl (7-24); CHLORIDE 101 mmol/L (98-107); CREATININE 0.71 mg/dL (0.55-1.02); LIPASE 302 U/L (73-393); POTASSIUM 3.9 mmol/L (3.5-5.1); SGOT/AST 49 IU/L (3-35); SGPT/ALT 88 U/L (12-78); SODIUM 137 mmol/L (136-145); TOTAL PROTEIN 7.2 gm/dL (6.4-8.2)
[2019-02-15 21:26] VITALS: BP 125/60
[2019-02-15] MEDS ORDERED: LISINOPRIL5 MG PO (21:28)
[2019-02-15] MEDS ORDERED: GEMFIBROZIL600 MG PO (22:08)
[2019-02-15] MEDS ORDERED: OMEPRAZOLE40 MG PO (22:10)
--- NOTE | 2019-02-15 22:20 | NUR ---
Time: 2219 A 38 year old FEMALE admitted to under services of BREANA DUGAN DO. Pt. arrived via bed from ER. Chief complaint: ABDOMINAL PAIN. BINA MART
[2019-02-15] MEDS ORDERED: NOVOLOG100 UNIT/1 SQ (22:35)
--- NOTE | 2019-02-15 22:40 | NUR ---
PRESENT AND AT BEDSIDE. IN FORMED THAT PATIENT IS STILL HAS ABDOMINAL PAIN 05/28.
--- NOTE | 2019-02-15 22:54 | NUR ---
INFORMED THAT MEDICATIONS ARE VERIFIED
--- NOTE | 2019-02-15 23:36 | NUR ---
INFORMED THAT PATIENT IS IN ROOM CRYING STATING PAIN 9/10 TO ABDOMINAL REGION AND THAT HER NAUSEA HAS ONLY GOT WORSE W/ ZOFRAN BEING INEFFECTIVE. STATED HE WILL PLACE SOME ORDERS.
[2019-02-16] VITALS: BP 131/69
--- NOTE | 2019-02-16 00:23 | NUR ---
CONSULTED, PER NO NEED TO CALL.
--- NOTE | 2019-02-16 00:34 | NUR ---
PATIENT MEDICATED WITH MORPHINE D/T 08/28 RLQ PAIN AND PHENERGAN FOR NAUSEA. WILL MONITOR
--- NOTE | 2019-02-16 01:19 | NUR ---
AIDE CAME TO THIS NURSE AND STATED THAT PATIENTS P.OX=86% RA, REEVALUATED P.OX WITH DIFFERENT EQUIPMENT P.OX=91-92% RA. PATIENT DOES USED HOME O2 PRN AT NIGHT, PLACED ON 1LPM NC P.OX=95%. NO DISTRESS NOTED, RES VINITA LOPEZ. PATIENT VOICED NO COMPLAINTS. CALL LIGHT LEFT WITHIN REACH.
--- NOTE | 2019-02-16 01:34 | NUR ---
MORPHINE & PHENERGAN EFFECTIVE.
--- NOTE | 2019-02-16 04:53 | NUR ---
24 HR chart check completed.
--- NOTE | 2019-02-16 05:10 | NUR ---
PATIENT MEDICATED WITH MORPHINE D/T RLQ PAIN 07/29 AND PHENERGAN FOR NAUSEA. WILL MONITOR
--- NOTE | 2019-02-16 06:10 | NUR ---
MORPHINE AND PHENERGAN EFFECTIVE
[2019-02-16 06:32] LABS: BASO # 0.1 10*3/uL (0.0-0.1); BASO % 0.6 % (0.0-1.0); EOS # 0.3 10*3/uL (0.0-0.4); EOS % 2.8 % (1.0-4.0); HEMATOCRIT 43.1 % (37.0-47.0); HEMOGLOBIN 12.8 g/dl (12.0-16.0); LYMPH # 2.4 10*3/uL (1.3-4.4); MEAN CORPUSCULAR HGB 26.7 pg (27.0-31.0); MEAN CORPUSCULAR HGB CONC 29.7 g/dl (33.0-37.0); MEAN PLATELET VOLUME 11.2 fl (9.6-12.3); MONO # 0.4 10*3/uL (0.1-1.0); MONO % 4.3 % (3.0-9.0); NEUT # 5.7 10*3/uL (2.3-7.9); NEUT % 64.5 % (47.0-73.0); PLATELET COUNT AUTOMATED 314 10*3/uL (130-400); RED BLOOD COUNT 4.79 10*6/uL (4.10-5.10); RED CELL DISTRI WIDTH 17.2 % (0-14.5); WHITE BLOOD COUNT 8.8 10*3/uL (4.8-10.8)
[2019-02-16 06:33] LABS: ALBUMIN 3.1 gm/dl (3.1-4.5); BUN 7 mg/dl (7-24); CHLORIDE 103 mmol/L (98-107); CREATININE 0.66 mg/dL (0.55-1.02); PHOSPHOROUS 3.9 mg/dL (2.5-4.9); POTASSIUM 3.9 mmol/L (3.5-5.1); SGOT/AST 55 IU/L (3-35); SGPT/ALT 88 U/L (12-78); SODIUM 138 mmol/L (136-145)
[2019-02-16 06:34] LABS: ALKALINE PHOSPHATASE 100 U/L (45-117); TOTAL PROTEIN 7.3 gm/dL (6.4-8.2)
--- NOTE | 2019-02-16 08:45 | NUR ---
PATIENT COMPLAINING OF PAIN IN HER RIGHT LOWER ABDOMEN. PATIENT REQUESTING MORPHINE AT THIS TIME. INFORMED PATIENT THAT HER MORPHINE IS NOT DUE AT THIS TIME. OFFERED PATIENT A NORCO. STATES SHE WILL JUST WAIT UNTIL THE MORPHINE IS DUE. NO OTHER NEEDS/COMPLAINTS AT THIS TIME.
[2019-02-16 12:00] VITALS: BP 131/72
[2019-02-16] MEDS ORDERED: PERCOCET 5-3251 EACH PO (12:21)
[2019-02-16] MEDS ORDERED: ZOFRAN4 MG PO (12:21)
--- NOTE | 2019-02-16 13:46 | NUR ---
Discharge instructions reviewed with patient/family. Patient receptive and verbalizes understanding. Follow-up care arranged. Written instructions given to patient/family. WENT OVER DISCHARGE PAPERS WITH PATIENT. IV REMOVED, PATIENT TOLERATED WELL. PATIENT RECIEVED PRESCRIPTION FOR PERCOCET. ALSO AWARE OF PRESCRIPTION FOR ZOFRAN AT PHARMACY. PATIENT ACCOMPANIED TO CAR VIA WHEELCHAIR BY STAFF AND FAMILY AT THIS TIME. ALL BELONINGS WITH PATIENT AT THIS TIME. BENITEZ HARRISON E
[2019-05-16] MEDS ORDERED: HYDROCODONE-AC1 EAC1 PO (22:32)
== END 2019-02-16 13:46 | disposition home or self-care (01) | DRG 392 ==
LOC: ED 18:56 → EDHOLD 21:14 → 4E 21:14
PROVIDERS: Internal Medicine; Physician Assistant; ADMIT Internal Medicine
DX: R10.31 Right lower quadrant pain (principal); G83.4 Cauda equina syndrome; E87.2 Acidosis; E44.0 Moderate protein-calorie malnutrition; Z68.45 Body mass index [BMI] 70 or greater, adult; G89.29 Other chronic pain; M54.5 Low back pain; E66.01 Morbid (severe) obesity due to excess calories; R74.0 Nonspecific elevation of levels of transaminase and lactic acid dehydrogenase [LDH]; K25.7 Chronic gastric ulcer without hemorrhage or perforation; E78.5 Hyperlipidemia, unspecified; M19.90 Unspecified osteoarthritis, unspecified site; E11.65 Type 2 diabetes mellitus with hyperglycemia; F17.210 Nicotine dependence, cigarettes, uncomplicated; Z88.8 Allergy status to other drugs, medicaments and biological substances; Z91.041 Radiographic dye allergy status; Z88.2 Allergy status to sulfonamides; Z91.048 Other nonmedicinal substance allergy status; Z90.49 Acquired absence of other specified parts of digestive tract; Z82.49 Family history of ischemic heart disease and other diseases of the circulatory system; Z87.442 Personal history of urinary calculi; Z85.43 Personal history of malignant neoplasm of ovary; Z87.11 Personal history of peptic ulcer disease; Z90.710 Acquired absence of both cervix and uterus; Z90.722 Acquired absence of ovaries, bilateral; Z84.1 Family history of disorders of kidney and ureter; Z82.5 Family history of asthma and other chronic lower respiratory diseases; Z79.4 Long term (current) use of insulin; Z79.899 Other long term (current) drug therapy; Z71.6 Tobacco abuse counseling

== ENCOUNTER 2019-03-03 01:41 | Emergency (ER) | payer MEDICARE ==
[~2019-03-03] VITALS: Wt 173.3 kg
[~2019-03-03 01:41] MED LIST changes: +GEMFIBROZIL600 MG PO; +LISINOPRIL5 MG PO; +NOVOLOG100 UNIT/1 SQ; +OMEPRAZOLE40 MG PO; +PERCOCET 5-3251 EACH PO; +ZOFRAN4 MG PO
[2019-03-03 02:13] LABS: BASO # 0.1 10*3/uL (0.0-0.1); BASO % 0.5 % (0.0-1.0); EOS # 0.2 10*3/uL (0.0-0.4); EOS % 2.3 % (1.0-4.0); HEMATOCRIT 44.1 % (37.0-47.0); HEMOGLOBIN 13.4 g/dl (12.0-16.0); LYMPH # 2.6 10*3/uL (1.3-4.4); LYMPH % 24.7 % (27.0-41.0); MEAN CELL VOLUME 88.7 fl (81.0-99.0); MEAN CORPUSCULAR HGB CONC 30.4 g/dl (33.0-37.0); MEAN PLATELET VOLUME 10.7 fl (9.6-12.3); MONO # 0.5 10*3/uL (0.1-1.0); MONO % 4.9 % (3.0-9.0); NEUT % 66.7 % (47.0-73.0); PLATELET COUNT AUTOMATED 327 10*3/uL (130-400); RED BLOOD COUNT 4.97 10*6/uL (4.10-5.10); RED CELL DISTRI WIDTH 17.1 % (0-14.5); WHITE BLOOD COUNT 10.5 10*3/uL (4.8-10.8)
[2019-03-03 02:32] LABS: ALBUMIN 3.3 gm/dl (3.1-4.5); ALKALINE PHOSPHATASE 104 U/L (45-117); BUN 10 mg/dl (7-24); CHLORIDE 100 mmol/L (98-107); CREATININE 0.79 mg/dL (0.55-1.02); POTASSIUM 3.8 mmol/L (3.5-5.1); SGOT/AST 48 IU/L (3-35); SGPT/ALT 73 U/L (12-78); SODIUM 134 mmol/L (136-145); TOTAL PROTEIN 7.9 gm/dL (6.4-8.2)
[2019-03-03 02:37] LABS: BILIRUBIN NEGATIVE (NEGATIVE); BLOOD 3+ (NEGATIVE); CLARITY CLOUDY (CLEAR); COLOR RED (YELLOW); GLUCOSE 3+ (NEGATIVE); KETONE NEGATIVE (NEGATIVE); LEUKO ESTERASE TRACE (NEGATIVE); NITRITE NEGATIVE (NEGATIVE); SPECIFIC GRAVITY 1.015 (1.005-1.030); UROBILINOGEN 0.2 E.U./dl (0.2-1.0)
[2019-03-03 02:46] LABS: RBC TNTC rbc/hpf (0-2)
[2019-05-16] MEDS ORDERED: HYDROCODONE-AC1 EAC1 PO (22:32)
== END 2019-03-03 04:03 | disposition left against medical advice (07) ==
LOC: ED 01:41
PROVIDERS: Emergency Medicine
DX: R31.9 Hematuria, unspecified (principal); E11.65 Type 2 diabetes mellitus with hyperglycemia; R74.0 Nonspecific elevation of levels of transaminase and lactic acid dehydrogenase [LDH]; G89.29 Other chronic pain; E66.01 Morbid (severe) obesity due to excess calories; E78.5 Hyperlipidemia, unspecified; F17.200 Nicotine dependence, unspecified, uncomplicated; Z87.442 Personal history of urinary calculi; Z91.041 Radiographic dye allergy status; Z88.8 Allergy status to other drugs, medicaments and biological substances; Z88.2 Allergy status to sulfonamides; Z88.6 Allergy status to analgesic agent; Z91.048 Other nonmedicinal substance allergy status; Z79.899 Other long term (current) drug therapy; Z68.45 Body mass index [BMI] 70 or greater, adult; Z90.710 Acquired absence of both cervix and uterus; Z90.49 Acquired absence of other specified parts of digestive tract

== ENCOUNTER 2019-06-29 08:53 | Emergency (ER) | payer MEDICARE ==
[~2019-06-29] VITALS: Ht 157.4 cm; Wt 179.6 kg
--- NOTE | ~2019-06-29 | EKG ---
[place], [place] ELECTROCARDIOGRAM REPORT NAME: NALINI KO UNIT #: [id number] ROOM: DOCTOR: EPIPHANY DRAFT REPORT BIRTHDATE: [birth year] [facility] Test Date: 2019-06-29 Test Time: 09:13:21 Pat Name: NALINI KO Department: ER Room: Gender: F Snipper: : 1980 Requested By: ZOHREH JEREZ Order Number: [id number] Reading MD: Jose Silva MD Measurements Intervals [place] Rate: 113 P: 36 NH: 137 QRS: 28 QRSD: 93 T: 2 QT: 319 QTc: 438 Interpretive Statements Sinus tachycardia Low voltage, precordial leads Nonspecific T wave changes Electronically Signed On 06-30-2019 4:48:44 PDT by Jose Silva MD CM:[email or web address]:ELECTROCARDIOGRAM REPORT [id number] ZOHREH JEREZ MD EPIPHANY DRAFT REPORT ZOHREH JEREZ MD
[~2019-06-29 08:53] MED LIST changes: +HYDROCODONE-AC1 EAC1 PO
[2019-06-29 09:29] LABS: BASO % 0.4 % (0.0-1.0); EOS # 0.5 10*3/uL (0.0-0.4); EOS % 4.8 % (1.0-4.0); HEMATOCRIT 41.3 % (37.0-47.0); HEMOGLOBIN 12.3 g/dl (12.0-16.0); LYMPH # 2.8 10*3/uL (1.3-4.4); LYMPH % 28.9 % (27.0-41.0); MEAN CORPUSCULAR HGB 26.8 pg (27.0-31.0); MEAN CORPUSCULAR HGB CONC 29.8 g/dl (33.0-37.0); MEAN PLATELET VOLUME 10.5 fl (9.6-12.3); MONO # 0.5 10*3/uL (0.1-1.0); NEUT # 5.9 10*3/uL (2.3-7.9); NEUT % 60.2 % (47.0-73.0); PLATELET COUNT AUTOMATED 324 10*3/uL (130-400); RED BLOOD COUNT 4.59 10*6/uL (4.10-5.10); RED CELL DISTRI WIDTH 17.1 % (0-14.5); WHITE BLOOD COUNT 9.8 10*3/uL (4.8-10.8)
[2019-06-29 09:47] LABS: ACT PARTIAL THROMBO TIME 25.4 SECONDS (20.0-32.1); ALBUMIN 3.4 gm/dl (3.1-4.5); ALKALINE PHOSPHATASE 86 U/L (45-117); BUN 10 mg/dl (7-24); CHLORIDE 102 mmol/L (98-107); CREATININE 0.71 mg/dL (0.55-1.02); INTERNATIONAL NORM RATIO 0.9 (2.0-3.5); POTASSIUM 4.1 mmol/L (3.5-5.1); SGOT/AST 36 IU/L (3-35); SGPT/ALT 63 U/L (12-78); SODIUM 136 mmol/L (136-145); TOTAL PROTEIN 7.5 gm/dL (6.4-8.2)
[2019-06-29 09:49] LABS: TROPONIN I < 0.015 ng/ml (<0.045)
[2019-06-29 11:39] LABS: BILIRUBIN NEGATIVE (NEGATIVE); BLOOD NEGATIVE (NEGATIVE); CLARITY CLEAR (CLEAR); COLOR YELLOW (YELLOW); GLUCOSE 3+ (NEGATIVE); KETONE NEGATIVE (NEGATIVE); LEUKO ESTERASE NEGATIVE (NEGATIVE); NITRITE NEGATIVE (NEGATIVE); SPECIFIC GRAVITY 1.015 (1.005-1.030); UROBILINOGEN 0.2 E.U./dl (0.2-1.0)
[2019-06-29 11:46] LABS: RBC 0-2 rbc/hpf (0-2)
[2019-06-29] MEDS ORDERED: AUGMENTIN 875875 MG PO (13:44)
[2019-06-29] MEDS ORDERED: ZOFRAN4 MG PO (13:45)
== END 2019-06-29 13:58 | disposition home or self-care (01) ==
LOC: ED 08:53
PROVIDERS: Emergency Medicine
DX: T81.49XA Infection following a procedure, other surgical site, initial encounter (principal); R10.9 Unspecified abdominal pain; R11.2 Nausea with vomiting, unspecified; E66.01 Morbid (severe) obesity due to excess calories; E11.9 Type 2 diabetes mellitus without complications; G89.29 Other chronic pain; E78.5 Hyperlipidemia, unspecified; M19.90 Unspecified osteoarthritis, unspecified site; F17.200 Nicotine dependence, unspecified, uncomplicated; Z90.49 Acquired absence of other specified parts of digestive tract; Z90.710 Acquired absence of both cervix and uterus; Z91.041 Radiographic dye allergy status; Z88.8 Allergy status to other drugs, medicaments and biological substances; Z88.2 Allergy status to sulfonamides; Z88.6 Allergy status to analgesic agent; Z91.048 Other nonmedicinal substance allergy status; Z79.4 Long term (current) use of insulin; Z79.899 Other long term (current) drug therapy; Z87.442 Personal history of urinary calculi; Z68.45 Body mass index [BMI] 70 or greater, adult; Y83.8 Other surgical procedures as the cause of abnormal reaction of the patient, or of later complication, without mention of misadventure at the time of the procedure; Y92.89 Other specified places as the place of occurrence of the external cause

== ENCOUNTER 2019-08-02 00:15 | Emergency (ER) | payer MEDICARE ==
[~2019-08-02] VITALS: Ht 157.4 cm; Wt 164.2 kg
[~2019-08-02 00:15] MED LIST changes: +AUGMENTIN 875875 MG PO
[2019-08-02 01:09] LABS: BASO % 0.2 % (0.0-1.0); HEMATOCRIT 36.9 % (37.0-47.0); HEMOGLOBIN 11.3 g/dl (12.0-16.0); LYMPH # 1.2 10*3/uL (1.3-4.4); MEAN CELL VOLUME 88.5 fl (81.0-99.0); MEAN CORPUSCULAR HGB 27.1 pg (27.0-31.0); MEAN CORPUSCULAR HGB CONC 30.6 g/dl (33.0-37.0); MONO # 0.7 10*3/uL (0.1-1.0); MONO % 4.5 % (3.0-9.0); NEUT # 12.4 10*3/uL (2.3-7.9); NEUT % 86.2 % (47.0-73.0); PLATELET COUNT AUTOMATED 349 10*3/uL (130-400); RED BLOOD COUNT 4.17 10*6/uL (4.10-5.10); RED CELL DISTRI WIDTH 16.8 % (0-14.5); WHITE BLOOD COUNT 14.4 10*3/uL (4.8-10.8)
[2019-08-02 01:37] LABS: ALBUMIN 3.4 gm/dl (3.1-4.5); CHLORIDE 102 mmol/L (98-107); TOTAL PROTEIN 7.6 gm/dL (6.4-8.2)
[2019-08-02 01:48] LABS: ALKALINE PHOSPHATASE 83 U/L (45-117); BUN 12 mg/dl (7-24); CREATININE 0.85 mg/dL (0.55-1.02); LIPASE 149 U/L (73-393); POTASSIUM 4.4 mmol/L (3.5-5.1); SGOT/AST 21 IU/L (3-35); SGPT/ALT 56 U/L (12-78); SODIUM 138 mmol/L (136-145)
[2019-08-02 02:28] LABS: BILIRUBIN NEGATIVE (NEGATIVE); BLOOD NEGATIVE (NEGATIVE); CLARITY SL CLOUDY (CLEAR); COLOR YELLOW (YELLOW); GLUCOSE 3+ (NEGATIVE); KETONE TRACE (NEGATIVE); LEUKO ESTERASE NEGATIVE (NEGATIVE); NITRITE NEGATIVE (NEGATIVE); UROBILINOGEN 0.2 E.U./dl (0.2-1.0)
[2019-08-02 02:33] LABS: BACTERIA 2+; EPITHELIAL CELLS 0-2
== END 2019-08-02 04:10 | disposition home or self-care (01) ==
LOC: ED 00:15
PROVIDERS: Nurse Practitioner Family
DX: A08.4 Viral intestinal infection, unspecified (principal); E11.9 Type 2 diabetes mellitus without complications; E78.5 Hyperlipidemia, unspecified; E66.01 Morbid (severe) obesity due to excess calories; M19.90 Unspecified osteoarthritis, unspecified site; F17.200 Nicotine dependence, unspecified, uncomplicated; Z91.041 Radiographic dye allergy status; Z88.2 Allergy status to sulfonamides; Z88.6 Allergy status to analgesic agent; Z88.8 Allergy status to other drugs, medicaments and biological substances; Z79.899 Other long term (current) drug therapy; Z79.4 Long term (current) use of insulin; Z68.45 Body mass index [BMI] 70 or greater, adult

== ENCOUNTER 2019-10-20 04:40 | Emergency (ER) | payer MEDICARE ==
[~2019-10-20] VITALS: Ht 157.4 cm; Wt 164.2 kg
[2019-10-20 05:00] LABS: BILIRUBIN NEGATIVE (NEGATIVE); BLOOD 3+ (NEGATIVE); CLARITY SL CLOUDY (CLEAR); COLOR YELLOW (YELLOW); GLUCOSE NEGATIVE (NEGATIVE); KETONE NEGATIVE (NEGATIVE); LEUKO ESTERASE NEGATIVE (NEGATIVE); NITRITE NEGATIVE (NEGATIVE); SPECIFIC GRAVITY 1.025 (1.005-1.030); UROBILINOGEN 0.2 E.U./dl (0.2-1.0)
[2019-10-20 05:07] LABS: EPITHELIAL CELLS 15-20; RBC 41-50 rbc/hpf (0-2)
[2019-10-20 05:27] LABS: BASO % 0.4 % (0.0-1.0); EOS # 0.2 10*3/uL (0.0-0.4); EOS % 2.7 % (1.0-4.0); HEMATOCRIT 41.4 % (37.0-47.0); HEMOGLOBIN 12.1 g/dl (12.0-16.0); LYMPH # 2.5 10*3/uL (1.3-4.4); LYMPH % 27.8 % (27.0-41.0); MEAN CORPUSCULAR HGB 25.4 pg (27.0-31.0); MEAN CORPUSCULAR HGB CONC 29.2 g/dl (33.0-37.0); MEAN PLATELET VOLUME 10.2 fl (9.6-12.3); MONO # 0.4 10*3/uL (0.1-1.0); MONO % 4.5 % (3.0-9.0); NEUT # 5.7 10*3/uL (2.3-7.9); NEUT % 64.2 % (47.0-73.0); PLATELET COUNT AUTOMATED 329 10*3/uL (130-400); RED BLOOD COUNT 4.76 10*6/uL (4.10-5.10); RED CELL DISTRI WIDTH 16.9 % (0-14.5); WHITE BLOOD COUNT 8.9 10*3/uL (4.8-10.8)
[2019-10-20 05:40] LABS: ALBUMIN 3.3 gm/dl (3.1-4.5); ALKALINE PHOSPHATASE 83 U/L (45-117); BUN 9 mg/dl (7-24); CHLORIDE 104 mmol/L (98-107); CREATININE 0.69 mg/dL (0.55-1.02); LIPASE 219 U/L (73-393); POTASSIUM 3.9 mmol/L (3.5-5.1); SGOT/AST 25 IU/L (3-35); SGPT/ALT 41 U/L (12-78); SODIUM 139 mmol/L (136-145); TOTAL PROTEIN 7.6 gm/dL (6.4-8.2)
== END 2019-10-20 08:13 | disposition home or self-care (01) ==
LOC: ED 04:40
PROVIDERS: Emergency Medicine
DX: N20.1 Calculus of ureter (principal); G89.29 Other chronic pain; E11.9 Type 2 diabetes mellitus without complications; E78.5 Hyperlipidemia, unspecified; E66.01 Morbid (severe) obesity due to excess calories; K21.9 Gastro-esophageal reflux disease without esophagitis; F17.200 Nicotine dependence, unspecified, uncomplicated; Z91.041 Radiographic dye allergy status; Z88.8 Allergy status to other drugs, medicaments and biological substances; Z88.2 Allergy status to sulfonamides; Z88.6 Allergy status to analgesic agent; Z91.048 Other nonmedicinal substance allergy status; Z79.899 Other long term (current) drug therapy; Z87.442 Personal history of urinary calculi; Z68.45 Body mass index [BMI] 70 or greater, adult; Z85.43 Personal history of malignant neoplasm of ovary

== ENCOUNTER 2020-03-28 05:00 | Emergency (ER) | payer OTHER, MEDICARE ==
[~2020-03-28] VITALS: Ht 157.4 cm; Wt 164.2 kg
[2020-03-28 05:21] LABS: CLARITY CLOUDY (CLEAR); COLOR ORANGE (YELLOW)
[2020-03-28 05:22] LABS: BILIRUBIN NEGATIVE (NEGATIVE); BLOOD 3+ (NEGATIVE); GLUCOSE NEGATIVE (NEGATIVE); KETONE NEGATIVE (NEGATIVE); NITRITE NEGATIVE (NEGATIVE); SPECIFIC GRAVITY 1.025 (1.005-1.030); UROBILINOGEN 0.2 E.U./dl (0.2-1.0)
[2020-03-28 05:23] LABS: LEUKO ESTERASE NEGATIVE (NEGATIVE)
[2020-03-28 05:42] LABS: RBC TNTC rbc/hpf (0-2)
[2020-03-28 05:43] LABS: WBC 0-2 wbc/hpf (0-5)
[2020-03-28 06:01] LABS: BASO # 0.1 10*3/uL (0.0-0.1); BASO % 0.5 % (0.0-1.0); EOS # 0.3 10*3/uL (0.0-0.4); EOS % 3.2 % (1.0-4.0); LYMPH # 2.5 10*3/uL (1.3-4.4); LYMPH % 26.6 % (27.0-41.0); MEAN CELL VOLUME 83.7 fl (81.0-99.0); MEAN CORPUSCULAR HGB 24.9 pg (27.0-31.0); MEAN CORPUSCULAR HGB CONC 29.8 g/dl (33.0-37.0); MEAN PLATELET VOLUME 10.3 fl (9.6-12.3); MONO # 0.5 10*3/uL (0.1-1.0); MONO % 5.3 % (3.0-9.0); NEUT % 63.8 % (47.0-73.0); PLATELET COUNT AUTOMATED 319 10*3/uL (130-400); RED BLOOD COUNT 4.78 10*6/uL (4.10-5.10); RED CELL DISTRI WIDTH 17.6 % (0-14.5); WHITE BLOOD COUNT 9.4 10*3/uL (4.8-10.8)
[2020-03-28 06:23] LABS: ALBUMIN 3.2 gm/dl (3.1-4.5); ALKALINE PHOSPHATASE 87 U/L (45-117); BUN 10 mg/dl (7-24); CHLORIDE 103 mmol/L (98-107); CREATININE 0.74 mg/dL (0.55-1.02); LIPASE 218 U/L (73-393); POTASSIUM 4.1 mmol/L (3.5-5.1); SGOT/AST 31 IU/L (3-35); SGPT/ALT 56 U/L (12-78); SODIUM 135 mmol/L (136-145); TOTAL PROTEIN 7.4 gm/dL (6.4-8.2)
[2020-03-28] MEDS ORDERED: ZOFRAN4 MG PO (07:29)
--- NOTE | 2020-03-28 07:57 | NUR ---
DILAUDID GIVEN FOR COMPLAINTS OF PAIN IN RIGHT QUADRANT AND LOWER BACK. WILL MONITOR EFFECTIVENESS
== END 2020-03-28 08:10 | disposition home or self-care (01) ==
LOC: ED 05:00
PROVIDERS: Emergency Medicine Emergency Medical Services
DX: N23 Unspecified renal colic (principal); R31.9 Hematuria, unspecified; K21.9 Gastro-esophageal reflux disease without esophagitis; G89.29 Other chronic pain; E78.5 Hyperlipidemia, unspecified; E66.01 Morbid (severe) obesity due to excess calories; M19.90 Unspecified osteoarthritis, unspecified site; E11.9 Type 2 diabetes mellitus without complications; Z87.442 Personal history of urinary calculi; Z91.041 Radiographic dye allergy status; Z88.8 Allergy status to other drugs, medicaments and biological substances; Z88.2 Allergy status to sulfonamides; Z88.6 Allergy status to analgesic agent; Z91.048 Other nonmedicinal substance allergy status; Z79.899 Other long term (current) drug therapy; Z68.45 Body mass index [BMI] 70 or greater, adult; Z90.710 Acquired absence of both cervix and uterus; Z90.49 Acquired absence of other specified parts of digestive tract; Z87.891 Personal history of nicotine dependence

== ENCOUNTER 2020-06-07 22:59 | Emergency (ER) | payer OTHER, MEDICARE ==
[~2020-06-07] VITALS: Ht 157.4 cm; Wt 154.7 kg
[2020-06-08 00:15] LABS: BILIRUBIN NEGATIVE (NEGATIVE); BLOOD 3+ (NEGATIVE); CLARITY CLOUDY (CLEAR); COLOR RED (YELLOW); GLUCOSE 2+ (NEGATIVE); KETONE NEGATIVE (NEGATIVE); LEUKO ESTERASE NEGATIVE (NEGATIVE); NITRITE NEGATIVE (NEGATIVE); UROBILINOGEN 0.2 E.U./dl (0.2-1.0)
[2020-06-08 00:19] LABS: RBC TNTC rbc/hpf (0-2)
[2020-06-08 01:04] LABS: BASO % 0.4 % (0.0-1.0); EOS # 0.3 10*3/uL (0.0-0.4); EOS % 2.6 % (1.0-4.0); HEMATOCRIT 40.3 % (37.0-47.0); LYMPH # 2.6 10*3/uL (1.3-4.4); LYMPH % 25.8 % (27.0-41.0); MEAN CELL VOLUME 83.3 fl (81.0-99.0); MEAN CORPUSCULAR HGB 24.2 pg (27.0-31.0); MONO # 0.5 10*3/uL (0.1-1.0); MONO % 5.2 % (3.0-9.0); NEUT # 6.5 10*3/uL (2.3-7.9); NEUT % 65.5 % (47.0-73.0); PLATELET COUNT AUTOMATED 311 10*3/uL (130-400); RED BLOOD COUNT 4.84 10*6/uL (4.10-5.10); RED CELL DISTRI WIDTH 18.5 % (0-14.5)
[2020-06-08 01:18] LABS: ALBUMIN 3.4 gm/dl (3.1-4.5); ALKALINE PHOSPHATASE 85 U/L (45-117); BUN 12 mg/dl (7-24); CHLORIDE 102 mmol/L (98-107); POTASSIUM 3.9 mmol/L (3.5-5.1); SGOT/AST 27 IU/L (3-35); SGPT/ALT 49 U/L (12-78); SODIUM 135 mmol/L (136-145); TOTAL PROTEIN 7.7 gm/dL (6.4-8.2)
== END 2020-06-08 06:55 | disposition home or self-care (01) ==
LOC: ED 22:59
PROVIDERS: Emergency Medicine; Nurse Practitioner Family
DX: R31.9 Hematuria, unspecified (principal); R10.2 Pelvic and perineal pain; E11.9 Type 2 diabetes mellitus without complications; E78.5 Hyperlipidemia, unspecified; M19.90 Unspecified osteoarthritis, unspecified site; E66.01 Morbid (severe) obesity due to excess calories; F17.200 Nicotine dependence, unspecified, uncomplicated; Z91.041 Radiographic dye allergy status; Z88.6 Allergy status to analgesic agent; Z88.8 Allergy status to other drugs, medicaments and biological substances; Z88.2 Allergy status to sulfonamides; Z79.899 Other long term (current) drug therapy; Z79.4 Long term (current) use of insulin; Z68.45 Body mass index [BMI] 70 or greater, adult

== ENCOUNTER 2020-08-20 04:10 | Emergency (ER) | payer OTHER ==
[~2020-08-20] VITALS: Ht 157.4 cm; Wt 164.7 kg
[2020-08-20 04:53] LABS: BILIRUBIN Negative (Negative); BLOOD 3+ (Negative); CLARITY Cloudy (Clear); COLOR Red (Yellow); GLUCOSE 3+ (Negative); KETONE Negative (Negative); LEUKO ESTERASE Negative (Negative); NITRITE Negative (Negative); SPECIFIC GRAVITY >= 1.030 (1.001-1.030)
[2020-08-20 05:01] LABS: BACTERIA TRACE; RBC 51-100 rbc/hpf (0-2)
[2020-08-20] MEDS ORDERED: CIPRO500 MG PO (05:33)
== END 2020-08-20 06:07 | disposition home or self-care (01) ==
LOC: ED 04:10
PROVIDERS: Internal Medicine
DX: N30.11 Interstitial cystitis (chronic) with hematuria (principal); Z88.8 Allergy status to other drugs, medicaments and biological substances; Z91.041 Radiographic dye allergy status; Z88.2 Allergy status to sulfonamides; Z79.899 Other long term (current) drug therapy; Z79.2 Long term (current) use of antibiotics

== ENCOUNTER 2020-09-16 18:40 | Emergency (ER) | payer OTHER ==
[~2020-09-16] VITALS: Ht 157.4 cm; Wt 150.6 kg
== END 2020-09-16 22:56 ==
LOC: ED 18:40
DX: M17.11 Unilateral primary osteoarthritis, right knee (principal); Z88.8 Allergy status to other drugs, medicaments and biological substances; Z79.899 Other long term (current) drug therapy

== ENCOUNTER 2020-12-29 01:55 | Emergency (ER) | payer OTHER ==
[~2020-12-29] VITALS: Ht 157.4 cm; Wt 164.2 kg
[2020-12-29 02:28] LABS: BILIRUBIN Negative (Negative); BLOOD 3+ (Negative); CLARITY Cloudy (Clear); COLOR Orange (Yellow); GLUCOSE 3+ (Negative); KETONE Trace (Negative); LEUKO ESTERASE Trace (Negative); NITRITE Negative (Negative)
[2020-12-29 02:44] LABS: RBC TNTC rbc/hpf (0-2)
[2020-12-29 03:15] LABS: BASO # 0.1 10*3/uL (0.0-0.1); BASO % 0.6 % (0.0-1.0); EOS # 0.3 10*3/uL (0.0-0.4); EOS % 2.5 % (1.0-4.0); LYMPH # 2.4 10*3/uL (1.3-4.4); LYMPH % 22.7 % (27.0-41.0); MEAN CELL VOLUME 84.3 fl (81.0-99.0); MEAN CORPUSCULAR HGB 25.5 pg (27.0-31.0); MEAN CORPUSCULAR HGB CONC 30.2 g/dl (33.0-37.0); MEAN PLATELET VOLUME 10.4 fl (9.6-12.3); MONO # 0.5 10*3/uL (0.1-1.0); MONO % 4.3 % (3.0-9.0); NEUT # 7.5 10*3/uL (2.3-7.9); NEUT % 69.3 % (47.0-73.0); PLATELET COUNT AUTOMATED 319 10*3/uL (130-400); RED BLOOD COUNT 5.34 10*6/uL (4.10-5.10); RED CELL DISTRI WIDTH 16.1 % (0-14.5); WHITE BLOOD COUNT 10.7 10*3/uL (4.8-10.8)
[2020-12-29 03:35] LABS: BUN 9 mg/dl (7-24); CHLORIDE 100 mmol/L (98-107); CREATININE 0.71 mg/dL (0.55-1.02); POTASSIUM 3.8 mmol/L (3.5-5.1); SODIUM 135 mmol/L (136-145)
== END 2020-12-29 03:50 | disposition home or self-care (01) ==
LOC: ED 01:55
PROVIDERS: Internal Medicine
DX: R10.31 Right lower quadrant pain (principal); E11.65 Type 2 diabetes mellitus with hyperglycemia; R31.9 Hematuria, unspecified; K21.9 Gastro-esophageal reflux disease without esophagitis; F17.200 Nicotine dependence, unspecified, uncomplicated; F41.9 Anxiety disorder, unspecified; Z88.8 Allergy status to other drugs, medicaments and biological substances; Z88.2 Allergy status to sulfonamides; Z91.041 Radiographic dye allergy status; Z79.899 Other long term (current) drug therapy; Z90.49 Acquired absence of other specified parts of digestive tract; Z90.710 Acquired absence of both cervix and uterus; Z98.890 Other specified postprocedural states

== ENCOUNTER 2022-01-26 21:00 | Emergency (ER) | payer OTHER ==
[2022-01-26 21:20] LABS: BILIRUBIN Negative (Negative); BLOOD 3+ (Negative); CLARITY Cloudy (Clear); COLOR Orange (Yellow); GLUCOSE Trace (Negative); KETONE Trace (Negative); LEUKO ESTERASE 1+ (Negative); NITRITE Negative (Negative)
[2022-01-26 21:31] LABS: RBC TNTC rbc/hpf (0-2)
[2022-01-26] MEDS ORDERED: BUSPAR15 MG PO (21:40)
[2022-01-26] MEDS ORDERED: OMEPRAZOLE40 MG PO (21:41)
[2022-01-26] MEDS ORDERED: CITALOPRAM40 MG PO (21:42)
[2022-01-26 21:44] LABS: BASO % 0.4 % (0.0-1.0); EOS # 0.3 10*3/uL (0.0-0.4); EOS % 2.8 % (1.0-4.0); HEMATOCRIT 44.3 % (37.0-47.0); LYMPH # 2.9 10*3/uL (1.3-4.4); LYMPH % 30.8 % (27.0-41.0); MEAN CELL VOLUME 93.9 fl (81.0-99.0); MEAN CORPUSCULAR HGB 29.9 pg (27.0-31.0); MEAN CORPUSCULAR HGB CONC 31.8 g/dl (33.0-37.0); MEAN PLATELET VOLUME 10.3 fl (9.6-12.3); MONO # 0.4 10*3/uL (0.1-1.0); MONO % 4.3 % (3.0-9.0); NEUT # 5.9 10*3/uL (2.3-7.9); NEUT % 61.2 % (47.0-73.0); PLATELET COUNT AUTOMATED 303 10*3/uL (130-400); RED BLOOD COUNT 4.72 10*6/uL (4.10-5.10); RED CELL DISTRI WIDTH 14.6 % (0-14.5); WHITE BLOOD COUNT 9.6 10*3/uL (4.8-10.8)
[2022-01-26 22:00] LABS: ALKALINE PHOSPHATASE 87 U/L (45-117); BUN 10 mg/dl (7-24); CHLORIDE 102 mmol/L (98-107); CREATININE 0.68 mg/dL (0.55-1.02); POTASSIUM 3.7 mmol/L (3.5-5.1); SGOT/AST 12 IU/L (3-35); SGPT/ALT 25 U/L (12-78); SODIUM 136 mmol/L (136-145); TOTAL PROTEIN 7.5 gm/dL (6.4-8.2)
== END 2022-01-27 01:29 | disposition home or self-care (01) ==
LOC: ED 21:00
PROVIDERS: Emergency Medicine; Hospitalist
DX: R10.31 Right lower quadrant pain (principal); R31.9 Hematuria, unspecified; E11.9 Type 2 diabetes mellitus without complications; E78.5 Hyperlipidemia, unspecified; E66.01 Morbid (severe) obesity due to excess calories; M19.90 Unspecified osteoarthritis, unspecified site; Z91.041 Radiographic dye allergy status; Z88.2 Allergy status to sulfonamides; Z88.8 Allergy status to other drugs, medicaments and biological substances; Z88.6 Allergy status to analgesic agent; Z79.899 Other long term (current) drug therapy; Z90.710 Acquired absence of both cervix and uterus; Z90.89 Acquired absence of other organs; Z98.890 Other specified postprocedural states; Z87.891 Personal history of nicotine dependence

== ENCOUNTER 2022-02-08 22:49 | Emergency (ER) | payer OTHER ==
[~2022-02-08] VITALS: Ht 157.4 cm; Wt 163.7 kg
[~2022-02-08 22:49] MED LIST changes: +BUSPAR15 MG PO; +CITALOPRAM40 MG PO
[2022-02-08 23:14] LABS: BILIRUBIN Negative (Negative); BLOOD 3+ (Negative); CLARITY Cloudy (Clear); COLOR Red (Yellow); GLUCOSE Negative (Negative); KETONE Negative (Negative); LEUKO ESTERASE 1+ (Negative); NITRITE Negative (Negative)
[2022-02-08 23:24] LABS: EPITHELIAL CELLS 41-50
[2022-02-08 23:25] LABS: RBC TNTC rbc/hpf (0-2)
== END 2022-02-09 01:35 | disposition home or self-care (01) ==
LOC: ED 22:49
PROVIDERS: Emergency Medicine
DX: R31.9 Hematuria, unspecified (principal); R10.30 Lower abdominal pain, unspecified; Z91.041 Radiographic dye allergy status; Z88.6 Allergy status to analgesic agent; Z88.8 Allergy status to other drugs, medicaments and biological substances; Z79.899 Other long term (current) drug therapy; Z90.49 Acquired absence of other specified parts of digestive tract; Z90.710 Acquired absence of both cervix and uterus; Z87.891 Personal history of nicotine dependence

== ENCOUNTER 2022-03-30 21:39 | Emergency (ER) | payer OTHER ==
[~2022-03-30] VITALS: Ht 157.4 cm; Wt 158.8 kg
[2022-03-30 22:32] LABS: BILIRUBIN Negative (Negative); BLOOD 3+ (Negative); CLARITY Cloudy (Clear); COLOR Orange (Yellow); GLUCOSE 2+ (Negative); KETONE Negative (Negative); LEUKO ESTERASE Trace (Negative); NITRITE Negative (Negative)
[2022-03-30 22:36] LABS: BASO % 0.4 % (0.0-1.0); EOS # 0.3 10*3/uL (0.0-0.4); EOS % 2.7 % (1.0-4.0); LYMPH # 3.3 10*3/uL (1.3-4.4); LYMPH % 31.9 % (27.0-41.0); MEAN CELL VOLUME 91.7 fl (81.0-99.0); MEAN CORPUSCULAR HGB 29.2 pg (27.0-31.0); MEAN CORPUSCULAR HGB CONC 31.8 g/dl (33.0-37.0); MONO # 0.6 10*3/uL (0.1-1.0); MONO % 5.4 % (3.0-9.0); NEUT # 6.1 10*3/uL (2.3-7.9); PLATELET COUNT AUTOMATED 310 10*3/uL (130-400); RED CELL DISTRI WIDTH 14.6 % (0-14.5); WHITE BLOOD COUNT 10.3 10*3/uL (4.8-10.8)
[2022-03-30 22:51] LABS: ALKALINE PHOSPHATASE 88 U/L (45-117); BUN 15 mg/dl (7-24); CHLORIDE 101 mmol/L (98-107); CREATININE 0.63 mg/dL (0.55-1.02); LIPASE 264 U/L (73-393); POTASSIUM 3.9 mmol/L (3.5-5.1); SGOT/AST 12 IU/L (3-35); SGPT/ALT 30 U/L (12-78); SODIUM 133 mmol/L (136-145); TOTAL PROTEIN 7.5 gm/dL (6.4-8.2)
[2022-03-30 23:02] LABS: BACTERIA 1+; RBC 41-50 rbc/hpf (0-2)
== END 2022-03-31 00:28 | disposition left against medical advice (07) ==
LOC: ED 21:39
PROVIDERS: Physician Assistant
DX: R10.32 Left lower quadrant pain (principal); R31.9 Hematuria, unspecified; R11.2 Nausea with vomiting, unspecified; K21.9 Gastro-esophageal reflux disease without esophagitis; Z90.710 Acquired absence of both cervix and uterus; Z91.041 Radiographic dye allergy status; Z88.6 Allergy status to analgesic agent; Z88.8 Allergy status to other drugs, medicaments and biological substances; Z79.899 Other long term (current) drug therapy; Z90.49 Acquired absence of other specified parts of digestive tract; F17.200 Nicotine dependence, unspecified, uncomplicated

== ENCOUNTER 2022-08-15 22:10 | Emergency (ER) | payer OTHER ==
[~2022-08-15] VITALS: Ht 157.4 cm; Wt 160.1 kg
[2022-08-15 23:47] LABS: BILIRUBIN Negative (Negative); BLOOD 3+ (Negative); CLARITY Turbid (Clear); COLOR Orange (Yellow); GLUCOSE 3+ (Negative); KETONE Trace (Negative); LEUKO ESTERASE 1+ (Negative); NITRITE Negative (Negative); PH 5.5 (4.5-8.0); SPECIFIC GRAVITY 1.025 (1.001-1.030)
[2022-08-15 23:56] LABS: RBC TNTC rbc/hpf (0-2)
== END 2022-08-16 00:36 | disposition home or self-care (01) ==
LOC: ED 22:10
PROVIDERS: Internal Medicine
DX: N20.9 Urinary calculus, unspecified (principal); Z90.49 Acquired absence of other specified parts of digestive tract; Z90.710 Acquired absence of both cervix and uterus; Z79.899 Other long term (current) drug therapy; Z91.041 Radiographic dye allergy status; Z88.2 Allergy status to sulfonamides; Z88.6 Allergy status to analgesic agent

== ENCOUNTER 2022-10-26 02:54 | Emergency (ER) | payer OTHER ==
[~2022-10-26] VITALS: Ht 157.4 cm; Wt 160.1 kg
[2022-10-26 03:37] LABS: BILIRUBIN Negative (Negative); BLOOD 3+ (Negative); CLARITY Cloudy (Clear); COLOR Red (Yellow); GLUCOSE 3+ (Negative); KETONE Negative (Negative); LEUKO ESTERASE 1+ (Negative); NITRITE Negative (Negative); PH 5.5 (4.5-8.0); UROBILINOGEN 0.2 E.U./dl (0.0-1.0)
[2022-10-26 03:40] LABS: BASO # 0.1 10*3/uL (0.0-0.1); BASO % 0.8 % (0.0-1.0); EOS # 0.4 10*3/uL (0.0-0.4); EOS % 3.9 % (1.0-4.0); HEMATOCRIT 44.7 % (37.0-47.0); LYMPH # 2.8 10*3/uL (1.3-4.4); LYMPH % 31.3 % (27.0-41.0); MEAN CELL VOLUME 89.6 fl (81.0-99.0); MEAN CORPUSCULAR HGB 27.5 pg (27.0-31.0); MEAN CORPUSCULAR HGB CONC 30.6 g/dl (33.0-37.0); MEAN PLATELET VOLUME 10.3 fl (9.6-12.3); MONO # 0.4 10*3/uL (0.1-1.0); MONO % 4.9 % (3.0-9.0); NEUT # 5.2 10*3/uL (2.3-7.9); NEUT % 58.8 % (47.0-73.0); PLATELET COUNT AUTOMATED 309 10*3/uL (130-400); RED BLOOD COUNT 4.99 10*6/uL (4.10-5.10); RED CELL DISTRI WIDTH 15.4 % (0-14.5); WHITE BLOOD COUNT 8.9 10*3/uL (4.8-10.8)
[2022-10-26 03:51] LABS: ALKALINE PHOSPHATASE 78 U/L (46-116); BUN 8 mg/dl (9-23); CHLORIDE 102 mmol/L (98-107); CPK 58 U/L (34-171); CREATININE 0.65 mg/dL (0.55-1.02); LIPASE 58 U/L (12-53); POTASSIUM 3.7 mmol/L (3.4-5.1); SGPT/ALT 27 U/L (10-49); SODIUM 136 mmol/L (136-145); TOTAL PROTEIN 6.7 gm/dL (6.0-8.0)
[2022-10-26 03:52] LABS: RBC TNTC rbc/hpf (0-2)
[2022-10-26] MEDS ORDERED: CIPRO500 MG PO (05:05)
[2022-10-26] MEDS ORDERED: Ondansetron4 MG PO (05:05)
== END 2022-10-26 05:35 | disposition home or self-care (01) ==
LOC: ED 02:54
PROVIDERS: Emergency Medicine
DX: N39.0 Urinary tract infection, site not specified (principal); R31.9 Hematuria, unspecified; Z87.442 Personal history of urinary calculi; F41.9 Anxiety disorder, unspecified; Z88.2 Allergy status to sulfonamides; Z91.040 Latex allergy status; Z79.1 Long term (current) use of non-steroidal anti-inflammatories (NSAID); Z88.8 Allergy status to other drugs, medicaments and biological substances; Z90.710 Acquired absence of both cervix and uterus; Z90.49 Acquired absence of other specified parts of digestive tract; F17.200 Nicotine dependence, unspecified, uncomplicated; F10.20 Alcohol dependence, uncomplicated

== ENCOUNTER 2023-03-08 00:23 | Emergency (ER) | payer OTHER ==
[~2023-03-08] VITALS: Ht 157.4 cm; Wt 154.7 kg
[~2023-03-08 00:23] MED LIST changes: +Ondansetron4 MG PO
[2023-03-08 01:10] LABS: BILIRUBIN Negative (Negative); BLOOD 3+ (Negative); CLARITY Cloudy (Clear); COLOR Red (Yellow); GLUCOSE Negative (Negative); KETONE Negative (Negative); LEUKO ESTERASE 1+ (Negative); NITRITE Negative (Negative)
[2023-03-08 01:24] LABS: RBC TNTC rbc/hpf (0-2); WBC 21-30 wbc/hpf (0-5)
== END 2023-03-08 02:21 | disposition left against medical advice (07) ==
LOC: ED 00:23
PROVIDERS: Emergency Medicine
DX: R31.9 Hematuria, unspecified (principal); F17.200 Nicotine dependence, unspecified, uncomplicated; Z90.49 Acquired absence of other specified parts of digestive tract; Z90.710 Acquired absence of both cervix and uterus; Z98.890 Other specified postprocedural states; Z79.899 Other long term (current) drug therapy; Z91.041 Radiographic dye allergy status; Z88.6 Allergy status to analgesic agent; Z88.2 Allergy status to sulfonamides; Z88.8 Allergy status to other drugs, medicaments and biological substances